=== PATIENT | male | born 1950 | race Hispanic/Latino ===

== ENCOUNTER 2018-01-15 10:12 | Inpatient (IN) | payer OTHER ==
[2018-01-15 11:43] LABS: Basophils # (Auto) 0.1 K/mm3 (0.0-0.1); Basophils % (Auto) 0.4 % (0.0-1.8); Eosinophils # (Auto) 0.1 K/mm3 (0.0-0.4); Eosinophils % (Auto) 0.8 % (0.0-4.3); Hematocrit 43.3 % (35.5-45.6); Lymphocytes # (Auto) 1.2 K/mm3 (1.2-5.4); Lymphocytes % (Auto) 7.2 % (13.4-35.0); Mean Corpuscular HGB Conc 35 % (32-34); Mean Corpuscular Hemoglobin 32 pg (28-32); Mean Corpuscular Volume 92 fl (84-94); Monocytes % (Auto) 11.8 % (0.0-7.3); Platelet Count 222 K/mm3 (140-440); Red Blood Count 4.72 M/mm3 (3.65-5.03)
[2018-01-15 11:58] LABS: BUN/Creatinine Ratio 17; Blood Urea Nitrogen 17 mg/dL (9-20); Calcium 9.3 mg/dL (8.4-10.2); Hemolysis Index 12
--- NOTE | 2018-01-15 14:28 | XRay Report ---
Chest 2 views: History: Possible pneumonia. Findings: Borderline cardiomegaly. Trachea is midline. Evidence of COPD. Infiltrates are noted in middle and lower lobe probably suggestive of pneumonitis. Impression: Pneumonia right middle and lower lobe.
--- NOTE | 2018-01-15 16:35 | Emergency Department Report ---
ED General Adult HPI - General Chief complaint: Recheck/Abnormal Lab/Rx Stated complaint: EVAL/REFERED BY /WBC HIGH Time Seen by Provider: 01/15/18 16:34 Source: patient, family, RN notes reviewed Mode of arrival: Ambulatory Limitations: No Limitations - History of Present Illness Initial comments: This is a 67-year-old male who is not known to this provider previously, endorses a past medical history of high cholesterol, A. fib, on Coumadin, hypertension. His primary care doctor is Dr. Romo. He was sent to the ER for evaluation of cough, elevated white blood cell count. Patient reports cough, mucus production and intermittent shortness of breath over the past few days. The symptoms are essentially painless, intermittent, do not radiate anywhere, and do not have exacerbating or relieving factors. He subjectively denies fever and denies lower abdominal pain, denies urinary symptoms. -: Gradual Severity scale (0 -10): 0 Consistency: intermittent Improves with: none Worsens with: none Associated Symptoms: cough, loss of appetite, malaise, shortness of breath. denies: confusion, chest pain, diaphoresis, fever/chills, headaches, nausea/ vomiting, rash, seizure, syncope, weakness - Related Data Allergies Allergy/AdvReac Type Severity Reaction Status Date / Time amoxicillin [From Augmentin] Allergy Diarrhea Verified 01/15/18 11:31 clavulanic acid Allergy Diarrhea Verified 01/15/18 11:31 [From Augmentin] ED Review of Systems ROS: Stated complaint: EVAL/REFERED BY /WBC HIGH Other details as noted in HPI Comment: All other systems reviewed and negative ED Past Medical Hx - Past Medical History Previous Medical History?: Yes Hx Hypertension: Yes Additional medical history: hyperlipidemia. a-fib - Surgical History Past Surgical History?: Yes Additional Surgical History: hernia sx 2016. finger sx while infant - Social History Smoking Status: Never Smoker Substance Use Type: None ED Physical Exam - General Limitations: No Limitations General appearance: alert, in no apparent distress - Head Head exam: Present: atraumatic, normocephalic - Eye Eye exam: Present: normal appearance, EOMI. Absent: nystagmus - ENT ENT exam: Present: normal exam, normal orophraynx, mucous membranes moist, normal external ear exam - Neck Neck exam: Present: normal inspection, full ROM. Absent: tenderness, meningismus - Respiratory Respiratory exam: Present: rhonchi. Absent: wheezes, chest wall tenderness - Cardiovascular Cardiovascular Exam: Present: tachycardia, irregular rhythm, normal heart sounds. Absent: systolic murmur, diastolic murmur, rubs, gallop - GI/Abdominal GI/Abdominal exam: Present: soft, normal bowel sounds. Absent: distended, tenderness, guarding, rebound, rigid, pulsatile mass - Rectal Rectal exam: Present: deferred - Extremities Exam Extremities exam: Present: normal inspection, full ROM, normal capillary refill , other (2+ pulses noted in the bilateral upper, lower extremities. Compartments soft. No long bony tenderness. The pelvis is stable.). Absent: tenderness, pedal edema, joint swelling, calf tenderness - Back Exam Back exam: Present: normal inspection, full ROM. Absent: tenderness, CVA tenderness (R), paraspinal tenderness, vertebral tenderness - Neurological Exam Neurological exam: Present: alert, oriented X3, CN II-XII intact, other ( Extraocular movements intact. Tongue midline. No facial droop. Facial sensation intact to light touch in the V1, V2, V3 distribution bilaterally. 5 and 5 strength in 4 extremities.. Sensation is intact to light touch in 4 extremities.). Absent: motor sensory deficit - Psychiatric Psychiatric exam: Present: normal affect, normal mood - Skin Skin exam: Present: warm, dry, intact, normal color. Absent: rash ED Course Vital Signs 01/15/18 01/15/18 11:22 16:19 Temperature 98.7 F 100.6 F H Pulse Rate 112 H 106 H Respiratory 18 15 Rate Blood Pressure 102/64 120/67 O2 Sat by Pulse 94 94 Oximetry ED Medical Decision Making - Lab Data Result diagrams: 01/15/18 16:40 01/15/18 16:34 Vital Signs 01/15/18 01/15/18 11:22 16:19 Temperature 98.7 F 100.6 F H Pulse Rate 112 H 106 H Respiratory 18 15 Rate Blood Pressure 102/64 120/67 O2 Sat by Pulse 94 94 Oximetry Lab Results 01/15/18 01/15/18 Range/Units 11:35 11:35 WBC 17.0 H (4.5-11.0) K/mm3 RBC 4.72 (3.65-5.03) M/mm3 Hgb 15.0 (11.8-15.2) gm/dl Hct 43.3 (35.5-45.6) % MCV 92 (84-94) fl MCH 32 (28-32) pg MCHC 35 H (32-34) % RDW 13.0 L (13.2-15.2) % Plt Count 222 (140-440) K/mm3 Lymph % (Auto) 7.2 L (13.4-35.0) % Isabella % (Auto) 11.8 H (0.0-7.3) % Eos % (Auto) 0.8 (0.0-4.3) % Baso % (Auto) 0.4 (0.0-1.8) % Lymph # 1.2 (1.2-5.4) K/mm3 Isabella # 2.0 H (0.0-0.8) K/mm3 Eos # 0.1 (0.0-0.4) K/mm3 Baso # 0.1 (0.0-0.1) K/mm3 Seg Neutrophils % 79.8 H (40.0-70.0) % Seg Neutrophils # 13.6 H (1.8-7.7) K/mm3 Sodium 132 L (137-145) mmol/L Potassium 3.7 (3.6-5.0) mmol/L Chloride 90.8 L (98-107) mmol/L Carbon Dioxide 26 (22-30) mmol/L Anion Gap 19 mmol/L BUN 17 (9-20) mg/dL Creatinine 1.0 (0.8-1.5) mg/dL Estimated GFR > 60 ml/min BUN/Creatinine Ratio 17 % Glucose 113 H (75-100) mg/dL Calcium 9.3 (8.4-10.2) mg/dL - EKG Data -: EKG Interpreted by Sc - EKG Data When compared to previous EKG there are: previous EKG unavailable 01/15/18 18:02 Atrial fibrillation, rapid ventricular response, 131 bpm, low voltage, normal axis, poor R-wave progression, not a STEMI - Radiology Data Radiology results: report reviewed, image reviewed X-ray of the chest suggest emphysematous changes, right lower lobe, right middle lobe pneumonia - Medical Decision Making Differential diagnosis, including but not limited to: Viral syndrome, pneumonia , bronchitis, A. fib with RVR Assessment and plan: 67-year-old gentleman with cough, mucus production, wheezing, x-ray of the chest that suggests right lower lobe and right middle lobe pneumonia, with tachycardia, leukocytosis, meeting sepsis criteria. He has a low-grade fever and is tachycardic, but is pleasant, calm and cooperative and looks very well. Please note that there is delay in administration of antibiotics secondary to prolonged wait time in this department in the waiting room. Furthermore, this provider began his shift well after the patient registered in the waiting room. Given the patient takes Coumadin therapy and has a therapeutic INR, he is not appropriate to receive azithromycin or Levaquin for his presumed community- acquired pneumonia. He endorses an intolerance to amoxicillin and then he gets diarrhea, but does not endorse any true anaphylactic or anaphylactoid responses. He will therefore be given IV fluids, albuterol, acetaminophen, ceftriaxone, and doxycycline. His A. fib with RVR is appreciated, but this is most likely secondary to his underlying sepsis, and it is my opinion that he would not benefit from a negative inotrope. The case is presented to the Hospital physician, Dr. Thao, who accepted the patient for the aforementioned. Critical care attestation.: If time is entered above; I have spent that time in minutes in the direct care of this critically ill patient, excluding procedure time. ED Disposition Clinical Impression: Atrial fibrillation with RVR Sepsis Qualifiers: Sepsis type: sepsis due to unspecified organism Qualified Code(s): A41.9 - Sepsis, unspecified organism Disposition: OP ADMIT IP TO THIS HOSP Is pt being admited?: Yes Condition: Good Referrals: GUERRERO BLACKBURN MD [Primary Care Provider] - 3-5 Days
[2018-01-15 16:50] LABS: Basophils # (Auto) 0.1 K/mm3 (0.0-0.1); Basophils % (Auto) 0.7 % (0.0-1.8); Eosinophils # (Auto) 0.1 K/mm3 (0.0-0.4); Eosinophils % (Auto) 0.8 % (0.0-4.3); Hematocrit 45.2 % (35.5-45.6); Hemoglobin 15.6 gm/dl (11.8-15.2); Lymphocytes # (Auto) 1.4 K/mm3 (1.2-5.4); Lymphocytes % (Auto) 8.2 % (13.4-35.0); Mean Corpuscular HGB Conc 34 % (32-34); Mean Corpuscular Hemoglobin 32 pg (28-32); Mean Corpuscular Volume 92 fl (84-94); Monocytes # (Auto) 1.9 K/mm3 (0.0-0.8); Monocytes % (Auto) 11.1 % (0.0-7.3); Platelet Count 241 K/mm3 (140-440); Red Cell Distribution Width 13.3 % (13.2-15.2)
[2018-01-15] MEDS ORDERED: NACL 0.9% 1000 ML IV ONE (16:57)
[2018-01-15] MEDS ORDERED: VIBRAMYCIN PO ONE (16:58)
[2018-01-15] MEDS ORDERED: TYLENOL PO ONE (16:58)
[2018-01-15] MEDS ORDERED: ATROVENT IH ONE (16:59)
[2018-01-15] MEDS ORDERED: PROVENTIL IH ONE (16:59)
[2018-01-15] MEDS ORDERED: SOLU-Medrol IV ONE (16:59)
[2018-01-15 17:00] LABS: INR 2.26 (0.87-1.13)
[2018-01-15 17:19] LABS: Alanine Aminotransferase 26 units/L (7-56); Albumin 4.4 g/dL (3.9-5); BUN/Creatinine Ratio 18; Blood Urea Nitrogen 18 mg/dL (9-20); Calcium 9.3 mg/dL (8.4-10.2); Hemolysis Index 6
--- NOTE | 2018-01-15 17:26 | History and Physical Report ---
History of Present Illness Chief complaint: I feel sick, I been coughing History of present illness: 67 YO Male with Atrial Fib on therapeutic anticoagulation, HTN, HLD presents to ED for evaluation. Pt states that he has been feeling sick for the past 4-5 days. Pt states that he has experienced productive cough with yellow sputum, shortness of breath, subjective fever with worsening symptoms over the past 1 day. Pt was seen by his PCP and found to have elevated WBC count and was instructed to seek further care at [facility]. Pt transported to ED. Pt seen and evaluated in ED and found to have Sepsis, Pneumonia. Pt initiated on sepsis protocol, and admitted to [facility] unit. No reports of CP, Palpitations, NVD, Trauma , BRBPR, Skin rash, or recent ill contacts. Past History Past Medical History: atrial fib, hypertension, hyperlipidemia Past Surgical History: hernia repair, Other (finger surgery) Social history: , lives with family. denies: smoking, alcohol abuse, prescription drug abuse Family history: hypertension Medications and Allergies Allergies Allergy/AdvReac Type Severity Reaction Status Date / Time amoxicillin [From Augmentin] Allergy Diarrhea Verified 01/15/18 11:31 clavulanic acid Allergy Diarrhea Verified 01/15/18 11:31 [From Augmentin] Home Medications Medication Instructions Recorded Confirmed Last Taken Type Amlodipine Besylate [Norvasc] 5 mg PO DAILY 01/15/18 01/15/18 01/15/18 History AtorvaSTATin [Lipitor] 10 mg PO DAILY 01/15/18 01/15/18 01/15/18 History Brinzolamide [Azopt 1%] 1 drop OU BID 01/15/18 01/15/18 01/15/18 History Latanoprost/Pf [Latanoprost 0.005% 7.5 ml OU BID 01/15/18 01/15/18 01/15/18 History Eye Drop] Lisinopril/Hydrochlorothiazide 1 tab PO QDAY 01/15/18 01/15/18 01/15/18 History [Zestoretic 20-25 mg] Metoprolol Succinate 25 mg PO QHS 01/15/18 01/15/18 01/14/18 History Prednisolone Acetate/Pf 5 ml OU BID 01/15/18 01/15/18 01/15/18 History [Prednisolone Acet 1% Eye Drop] Timolol [Betimol] 5 ml OU BID 01/15/18 01/15/18 01/15/18 History Warfarin Sodium 5 mg PO DAILY 01/15/18 01/15/18 01/15/18 History cycloSPORINE [Restasis] 1 each OU BID 01/15/18 01/15/18 01/15/18 History Active Meds: Active Medications Ceftriaxone Sodium (Rocephin/Ns 2 Gm/100 Ml) 2 gm in 100 mls @ 200 mls/hr IV NOW BOY; Protocol Review of Systems Constitutional: fever, fatigue, weakness, no weight loss, no weight gain, no chills, no sweats Ears, nose, mouth and throat: no ear pain, no ear discharge, no tinnitis, no decreased hearing, no nose pain, no nasal congestion Cardiovascular: no chest pain, no palpitations, no edema, no syncope, no lightheadedness Respiratory: cough with sputum, shortness of breath Gastrointestinal: no abdominal pain, no nausea, no vomiting, no diarrhea, no constipation Genitourinary Male: no hematuria, no flank pain, no urinary frequency, no urinary hesitancy Rectal: no pain, no incontinence, no bleeding Musculoskeletal: no neck pain, no shooting arm pain, no arm numbness/tingling, no low back pain, no shooting leg pain Integumentary: no rash, no pruritis, no redness, no sores, no wounds Neurological: no paralysis, no weakness, no parathesias, no numbness, no tingling, no seizures Psychiatric: no anxiety, no memory loss, no change in sleep habits, no sleep disturbances, no insomnia, no hypersomnia Endocrine: no cold intolerance, no heat intolerance, no polyphagia, no excessive thirst, no polydipsia, no polyuria, no nocturia Hematologic/Lymphatic: no easy bruising, no easy bleeding, no lymphadenopathy, no lymphedema Allergic/Immunologic: no urticaria, no allergic rhinitis, no wheezing Exam - Constitutional Vitals: Temp Pulse Resp BP Pulse Ox 100.6 F H 106 H 15 120/67 94 01/15/18 16:19 01/15/18 16:19 01/15/18 16:19 01/15/18 16:19 01/15/18 16:19 General appearance: Present: mild distress - EENT Eyes: Present: PERRL ENT: hearing intact, clear oral mucosa - Neck Neck: Present: supple, normal ROM - Respiratory Respiratory effort: normal Respiratory: bilateral: diminished, rhonchi - Cardiovascular Rhythm: irregularly irregular Heart Sounds: Present: S1 & S2. Absent: rub, click - Extremities Extremities: pulses symmetrical, No edema Peripheral Pulses: abnormal (capillary refill greater than 3.5 seconds) - Abdominal General gastrointestinal: Present: soft, non-tender, non-distended, normal bowel sounds Male genitourinary: Present: normal - Integumentary Integumentary: Present: warm, dry, clammy, decreased turgor - Musculoskeletal Musculoskeletal: generalized weakness - Psychiatric Psychiatric: appropriate mood/affect, intact judgment & insight - Neurologic Neurologic: CNII-XII intact, moves all extremities Results - Labs CBC & Chem 7: 01/15/18 16:40 01/15/18 16:34 Labs: Abnormal lab results 01/15/18 01/15/18 01/15/18 Range/Units 11:35 11:35 16:34 WBC 17.0 H (4.5-11.0) K/mm3 Hgb (11.8-15.2) gm/dl MCHC 35 H (32-34) % RDW 13.0 L (13.2-15.2) % Lymph % (Auto) 7.2 L (13.4-35.0) % Morgan % (Auto) 11.8 H (0.0-7.3) % Morgan # 2.0 H (0.0-0.8) K/mm3 Seg Neutrophils % 79.8 H (40.0-70.0) % Seg Neutrophils # 13.6 H (1.8-7.7) K/mm3 PT 26.4 H (12.2-14.9) Sec. INR 2.26 H (0.87-1.13) Sodium 132 L (137-145) mmol/L Chloride 90.8 L (98-107) mmol/L Glucose 113 H (75-100) mg/dL Total Bilirubin (0.1-1.2) mg/dL 01/15/18 01/15/18 Range/Units 16:34 16:40 WBC 17.0 H (4.5-11.0) K/mm3 Hgb 15.6 H (11.8-15.2) gm/dl MCHC (32-34) % RDW (13.2-15.2) % Lymph % (Auto) 8.2 L (13.4-35.0) % Morgan % (Auto) 11.1 H (0.0-7.3) % Morgan # 1.9 H (0.0-0.8) K/mm3 Seg Neutrophils % 79.2 H (40.0-70.0) % Seg Neutrophils # 13.5 H (1.8-7.7) K/mm3 PT (12.2-14.9) Sec. INR (0.87-1.13) Sodium 133 L (137-145) mmol/L Chloride 89.8 L (98-107) mmol/L Glucose 115 H (75-100) mg/dL Total Bilirubin 2.50 H (0.1-1.2) mg/dL Assessment and Plan - Patient Problems (1) Sepsis Current Visit: Yes Status: Acute Qualifiers: Sepsis type: sepsis due to unspecified organism Qualified Code(s): A41.9 - Sepsis, unspecified organism Plan to address problem: IV antibiotic therapy, IVF resuscitation therapy, serial lactic acid, chest xray , urinalysis, blood cultures, monitor uop q shift, (2) Atrial fibrillation Current Visit: Yes Status: Acute Qualifiers: Atrial fibrillation type: persistent Qualified Code(s): I48.1 - Persistent atrial fibrillation Plan to address problem: resume therapeutic anticoagulation, supportive care. (3) Pneumonia Current Visit: Yes Status: Acute Qualifiers: Laterality: bilateral Lung location: lower lobe of lung Plan to address problem: Pneumonia protocol, IV antibiotics, blood culture, chest x ray, nebulizer therapy, supplemental oxygen, (4) HTN (hypertension) Current Visit: Yes Status: Acute Qualifiers: Hypertension type: essential hypertension Qualified Code(s): I10 - Essential (primary) hypertension Plan to address problem: monitor BP q shift, (5) HLD (hyperlipidemia) Current Visit: Yes Status: Acute Qualifiers: Hyperlipidemia type: mixed hyperlipidemia Qualified Code(s): E78.2 - Mixed hyperlipidemia Plan to address problem: Statin therapy, low cholesterol diet (6) DVT prophylaxis Current Visit: Yes Status: Acute Plan to address problem: SCD to BLE while in bed.
[2018-01-15 17:56] LABS: Albumin 4.4 g/dL (3.9-5); Bilirubin,Direct 0.7 mg/dL (0-0.2)
[2018-01-15] MEDS: ROCEPHIN/NS 2 GM/100 ML 2 GM/100 ML BAG IV SCH (19:42)
[2018-01-15] MEDS ORDERED: TYLENOL PO PRN (20:57)
[2018-01-15] MEDS ORDERED: ZOFRAN IV PRN (20:57)
[2018-01-15] MEDS ORDERED: NACL 0.9% 1000 ML 1,000 ML IV ONE (21:15)
[2018-01-15] MEDS ORDERED: NACL 0.9% 1000 ML 1,000 ML ONE (21:17)
[2018-01-15 22:43] LABS: Bilirubin,Urine NEG (Negative); Blood,Urine NEG (Negative); Color,Urine Dark Yellow (Yellow); Mucus,Urine FEW /HPF; Protein,Urine <15 mg/dL mg/dL (Negative); Urobilinogen,Urine < 2.0 mg/dL (<2.0)
[2018-01-15] MEDS: SODIUM CHLORIDE FLUSH SYRINGE 10 ML IV SCH (23:05)
[2018-01-16] MEDS: SODIUM CHLORIDE FLUSH SYRINGE 10 ML IV SCH ×2 (09:22→21:14)
--- NOTE | 2018-01-16 16:07 | Progress Note ---
Assessment and Plan Assessment and plan: I feel sick, I been coughing History of present illness: 67 YO Male with Atrial Fib on therapeutic anticoagulation, HTN, HLD presents to ED for evaluation. Pt states that he has been feeling sick for the past 4-5 days. Pt states that he has experienced productive cough with yellow sputum, shortness of breath, subjective fever with worsening symptoms over the past 1 day. Pt was seen by his PCP and found to have elevated WBC count and was instructed to seek further care at [facility]. Pt transported to ED. Pt seen and evaluated in ED and found to have Sepsis, Pneumonia. Pt initiated on sepsis protocol, and admitted to [facility] unit. No reports of CP, Palpitations, NVD, Trauma , BRBPR, Skin rash, or recent ill contacts. Past Medical History: atrial fib, hypertension, hyperlipidemia Sepsis IV antibiotic therapy, IVF resuscitation therapy, serial lactic acid, chest xray , urinalysis, blood cultures, monitor uop q shift, Atrial fibrillation with hypercoaguable state resume therapeutic anticoagulation, supportive care. Pneumonia Pneumonia protocol, IV antibiotics, blood culture, chest x ray, nebulizer therapy, supplemental oxygen, HTN (hypertension) monitor BP q shift, HLD (hyperlipidemia) Statin therapy, low cholesterol diet History Interval history: Reports fever and productive cough Review of systems Constitutional: , no malaise, no joint pains CVS: No chest pain, no orthopnea, no dyspnea on exertion, no pedal edema GI: No abdominal pain, no diarrhea, no vomiting, no constipation Respiratory:, no wheezing, Hospitalist Physical - Physical exam Narrative exam: General.: Appears well, no distress, nontoxic HEENT: Moist mucous membranes, extraocular muscles intact, no lymphadenopathy Neck: supple Cardiac: S1-S2 heard Lungs: Crackles Abdomen: soft , nontender, nondistended, bowel sounds positive Extremities: no edema clubbing or cyanosis Skin: no rash or lesions Neurologic: no gross focal deficits Psych: appropriate behavior, appropriate mood, corporative, judgment intact - Constitutional Vitals: Temp Pulse Resp BP Pulse Ox 97.6 F 128 H 16 109/62 92 01/16/18 14:18 01/16/18 14:18 01/16/18 14:18 01/16/18 14:18 01/16/18 14:18 General appearance: Present: mild distress Results - Labs CBC & Chem 7: 01/15/18 16:40 01/15/18 16:34 Labs: Laboratory Last Values WBC 17.0 K/mm3 (4.5-11.0) H 01/15/18 16:40 RBC 4.90 M/mm3 (3.65-5.03) 01/15/18 16:40 Hgb 15.6 gm/dl (11.8-15.2) H 01/15/18 16:40 Hct 45.2 % (35.5-45.6) 01/15/18 16:40 MCV 92 fl (84-94) 01/15/18 16:40 MCH 32 pg (28-32) 01/15/18 16:40 MCHC 34 % (32-34) 01/15/18 16:40 RDW 13.3 % (13.2-15.2) 01/15/18 16:40 Plt Count 241 K/mm3 (140-440) 01/15/18 16:40 Lymph % (Auto) 8.2 % (13.4-35.0) L 01/15/18 16:40 Tyler % (Auto) 11.1 % (0.0-7.3) H 01/15/18 16:40 Eos % (Auto) 0.8 % (0.0-4.3) 01/15/18 16:40 Baso % (Auto) 0.7 % (0.0-1.8) 01/15/18 16:40 Lymph # 1.4 K/mm3 (1.2-5.4) 01/15/18 16:40 Tyler # 1.9 K/mm3 (0.0-0.8) H 01/15/18 16:40 Eos # 0.1 K/mm3 (0.0-0.4) 01/15/18 16:40 Baso # 0.1 K/mm3 (0.0-0.1) 01/15/18 16:40 Seg Neutrophils % 79.2 % (40.0-70.0) H 01/15/18 16:40 Seg Neutrophils # 13.5 K/mm3 (1.8-7.7) H 01/15/18 16:40 PT 26.4 Sec. (12.2-14.9) H 01/15/18 16:34 INR 2.26 (0.87-1.13) H 01/15/18 16:34 VBG pH 7.412 (7.320-7.420) 01/15/18 16:34 Sodium 133 mmol/L (137-145) L 01/15/18 16:34 Potassium 3.6 mmol/L (3.6-5.0) 01/15/18 16:34 Chloride 89.8 mmol/L (98-107) L 01/15/18 16:34 Carbon Dioxide 27 mmol/L (22-30) 01/15/18 16:34 Anion Gap 20 mmol/L 01/15/18 16:34 BUN 18 mg/dL (9-20) 01/15/18 16:34 Creatinine 1.0 mg/dL (0.8-1.5) 01/15/18 16:34 Estimated GFR > 60 ml/min 01/15/18 16:34 BUN/Creatinine Ratio 18 % 01/15/18 16:34 Glucose 115 mg/dL (75-100) H 01/15/18 16:34 Lactic Acid 1.60 mmol/L (0.7-2.0) 01/16/18 05:42 Calcium 9.3 mg/dL (8.4-10.2) 01/15/18 16:34 Total Bilirubin 2.50 mg/dL (0.1-1.2) H 01/15/18 17:08 Direct Bilirubin 0.7 mg/dL (0-0.2) H 01/15/18 17:08 Indirect Bilirubin 1.8 mg/dL 01/15/18 17:08 AST 35 units/L (5-40) 01/15/18 17:08 ALT 27 units/L (7-56) 01/15/18 17:08 Alkaline Phosphatase 67 units/L (35-129) 01/15/18 17:08 Total Protein 7.1 g/dL (6.3-8.2) 01/15/18 17:08 Albumin 4.4 g/dL (3.9-5) 01/15/18 17:08 Albumin/Globulin Ratio 1.6 % 01/15/18 17:08 Urine Color Dark yellow (Yellow) 01/15/18 21:37 Urine Turbidity Slightly-cloudy (Clear) 01/15/18 21:37 Urine pH 5.0 (5.0-7.0) 01/15/18 21:37 Ur Specific Colora 1.016 (1.003-1.030) 01/15/18 21:37 Urine Protein <15 mg/dl mg/dL (Negative) 01/15/18 21:37 Urine Glucose (UA) Neg mg/dL (Negative) 01/15/18 21:37 Urine Ketones 20 mg/dL (Negative) 01/15/18 21:37 Urine Blood Neg (Negative) 01/15/18 21:37 Urine Nitrite Neg (Negative) 01/15/18 21:37 Urine Bilirubin Neg (Negative) 01/15/18 21:37 Urine Urobilinogen < 2.0 mg/dL (<2.0) 01/15/18 21:37 Ur Leukocyte Esterase Neg (Negative) 01/15/18 21:37 Urine WBC (Auto) 7.0 /HPF (0.0-6.0) H 01/15/18 21:37 Urine RBC (Auto) 3.0 /HPF (0.0-6.0) 01/15/18 21:37 Urine Mucus Few /HPF 01/15/18 21:37
[2018-01-16] MEDS: NACL 0.9% 1000 ML 1,000 ML IV SCH (17:24)
[2018-01-16] MEDS: SODIUM CHLORIDE FLUSH SYRINGE 10 ML IV PRN (17:25)
[2018-01-16] MEDS: ROCEPHIN/NS 2 GM/100 ML 2 GM/100 ML BAG IV SCH (17:25)
[2018-01-16] MEDS: TESSALON PERLES PO SCH (21:08)
[2018-01-16] MEDS: ROBITUSSIN AC PO PRN (21:09)
[2018-01-17] MEDS: ROBITUSSIN AC PO PRN ×4 (01:26→23:15)
[2018-01-17] MEDS: NACL 0.9% 1000 ML 1,000 ML IV SCH ×3 (01:27→17:16)
[2018-01-17] MEDS: TESSALON PERLES PO SCH ×3 (05:35→21:26)
--- NOTE | 2018-01-17 08:15 | Progress Note ---
Assessment and Plan Assessment and plan: I feel sick, I been coughing History of present illness: 67 YO Male with Atrial Fib on therapeutic anticoagulation, HTN, HLD presents to ED for evaluation. Pt states that he has been feeling sick for the past 4-5 days. Pt states that he has experienced productive cough with yellow sputum, shortness of breath, subjective fever with worsening symptoms over the past 1 day. Pt was seen by his PCP and found to have elevated WBC count and was instructed to seek further care at [facility]. Pt transported to ED. Pt seen and evaluated in ED and found to have Sepsis, Pneumonia. Pt initiated on sepsis protocol, and admitted to [facility] unit. No reports of CP, Palpitations, NVD, Trauma , BRBPR, Skin rash, or recent ill contacts. Past Medical History: atrial fib, hypertension, hyperlipidemia Sepsis IV antibiotic therapy, IVF resuscitation therapy, serial lactic acid, chest xray , urinalysis, blood cultures, monitor uop q shift, Atrial fibrillation with hypercoaguable state resume therapeutic anticoagulation, supportive care. tachycardic, resume metoprolol, 12 lead ekg, and on warfarin Pneumonia Pneumonia protocol, IV antibiotics, blood culture, chest x ray, nebulizer therapy, supplemental oxygen, HTN (hypertension) monitor BP q shift, HLD (hyperlipidemia) Statin therapy, low cholesterol diet History Interval history: Fever has resolved, he reports productive cough Nurses report he was tachycardic overnight Review of systems Constitutional: , no malaise, no joint pains CVS: No chest pain, no orthopnea, no dyspnea on exertion, no pedal edema GI: No abdominal pain, no diarrhea, no vomiting, no constipation Respiratory:, no wheezing, Hospitalist Physical - Physical exam Narrative exam: General.: Appears well, no distress, nontoxic HEENT: Moist mucous membranes, extraocular muscles intact, no lymphadenopathy Neck: supple Cardiac: S1-S2 heard Lungs: Crackles Abdomen: soft , nontender, nondistended, bowel sounds positive Extremities: no edema clubbing or cyanosis Skin: no rash or lesions Neurologic: no gross focal deficits Psych: appropriate behavior, appropriate mood, corporative, judgment intact - Constitutional Vitals: Temp Pulse Resp BP Pulse Ox 98.2 F 100 H 20 116/72 93 01/17/18 02:27 01/16/18 20:30 01/17/18 02:27 01/17/18 02:27 01/16/18 21:00 General appearance: Present: mild distress Results - Labs CBC & Chem 7: 01/15/18 16:40 01/15/18 16:34 Labs: Laboratory Last Values WBC 17.0 K/mm3 (4.5-11.0) H 01/15/18 16:40 RBC 4.90 M/mm3 (3.65-5.03) 01/15/18 16:40 Hgb 15.6 gm/dl (11.8-15.2) H 01/15/18 16:40 Hct 45.2 % (35.5-45.6) 01/15/18 16:40 MCV 92 fl (84-94) 01/15/18 16:40 MCH 32 pg (28-32) 01/15/18 16:40 MCHC 34 % (32-34) 01/15/18 16:40 RDW 13.3 % (13.2-15.2) 01/15/18 16:40 Plt Count 241 K/mm3 (140-440) 01/15/18 16:40 Lymph % (Auto) 8.2 % (13.4-35.0) L 01/15/18 16:40 [place] % (Auto) 11.1 % (0.0-7.3) H 01/15/18 16:40 Eos % (Auto) 0.8 % (0.0-4.3) 01/15/18 16:40 Baso % (Auto) 0.7 % (0.0-1.8) 01/15/18 16:40 Lymph # 1.4 K/mm3 (1.2-5.4) 01/15/18 16:40 [place] # 1.9 K/mm3 (0.0-0.8) H 01/15/18 16:40 Eos # 0.1 K/mm3 (0.0-0.4) 01/15/18 16:40 Baso # 0.1 K/mm3 (0.0-0.1) 01/15/18 16:40 Seg Neutrophils % 79.2 % (40.0-70.0) H 01/15/18 16:40 Seg Neutrophils # 13.5 K/mm3 (1.8-7.7) H 01/15/18 16:40 PT 26.4 Sec. (12.2-14.9) H 01/15/18 16:34 INR 2.26 (0.87-1.13) H 01/15/18 16:34 VBG pH 7.412 (7.320-7.420) 01/15/18 16:34 Sodium 133 mmol/L (137-145) L 01/15/18 16:34 Potassium 3.6 mmol/L (3.6-5.0) 01/15/18 16:34 Chloride 89.8 mmol/L (98-107) L 01/15/18 16:34 Carbon Dioxide 27 mmol/L (22-30) 01/15/18 16:34 Anion Gap 20 mmol/L 01/15/18 16:34 BUN 18 mg/dL (9-20) 01/15/18 16:34 Creatinine 1.0 mg/dL (0.8-1.5) 01/15/18 16:34 Estimated GFR > 60 ml/min 01/15/18 16:34 BUN/Creatinine Ratio 18 % 01/15/18 16:34 Glucose 115 mg/dL (75-100) H 01/15/18 16:34 Lactic Acid 1.60 mmol/L (0.7-2.0) 01/16/18 05:42 Calcium 9.3 mg/dL (8.4-10.2) 01/15/18 16:34 Total Bilirubin 2.50 mg/dL (0.1-1.2) H 01/15/18 17:08 Direct Bilirubin 0.7 mg/dL (0-0.2) H 01/15/18 17:08 Indirect Bilirubin 1.8 mg/dL 01/15/18 17:08 AST 35 units/L (5-40) 01/15/18 17:08 ALT 27 units/L (7-56) 01/15/18 17:08 Alkaline Phosphatase 67 units/L (35-129) 01/15/18 17:08 Total Protein 7.1 g/dL (6.3-8.2) 01/15/18 17:08 Albumin 4.4 g/dL (3.9-5) 01/15/18 17:08 Albumin/Globulin Ratio 1.6 % 01/15/18 17:08 Urine Color Dark yellow (Yellow) 01/15/18 21:37 Urine Turbidity Slightly-cloudy (Clear) 01/15/18 21:37 Urine pH 5.0 (5.0-7.0) 01/15/18 21:37 Ur Specific [place] 1.016 (1.003-1.030) 01/15/18 21:37 Urine Protein <15 mg/dl mg/dL (Negative) 01/15/18 21:37 Urine Glucose (UA) Neg mg/dL (Negative) 01/15/18 21:37 Urine Ketones 20 mg/dL (Negative) 01/15/18 21:37 Urine Blood Neg (Negative) 01/15/18 21:37 Urine Nitrite Neg (Negative) 01/15/18 21:37 Urine Bilirubin Neg (Negative) 01/15/18 21:37 Urine Urobilinogen < 2.0 mg/dL (<2.0) 01/15/18 21:37 Ur Leukocyte Esterase Neg (Negative) 01/15/18 21:37 Urine WBC (Auto) 7.0 /HPF (0.0-6.0) H 01/15/18 21:37 Urine RBC (Auto) 3.0 /HPF (0.0-6.0) 01/15/18 21:37 Urine Mucus Few /HPF 01/15/18 21:37
[2018-01-17] MEDS ORDERED: LOPRESSOR PO ONE ×2 (08:18→12:00)
[2018-01-17] MEDS: SODIUM CHLORIDE FLUSH SYRINGE 10 ML IV SCH ×2 (09:20→21:26)
[2018-01-17] MEDS ORDERED: NON-FORMULARY (Lisinopril/Hydrochlorothiazide [Zestoretic 20-25 Mg] 1 TAB) PO SCH (10:00)
[2018-01-17] MEDS ORDERED: NON-FORMULARY (Brinzolamide [Azopt 1%] 1 DROP) OU SCH (10:00)
[2018-01-17] MEDS ORDERED: COUMADIN PO SCH ×3 (10:00→17:00)
[2018-01-17] MEDS ORDERED: CYCLOSPORINE OU SCH (10:00)
[2018-01-17] MEDS ORDERED: TIMOLOL OU SCH (10:00)
[2018-01-17] MEDS: NORVASC PO SCH (11:51)
[2018-01-17] MEDS: ZESTRIL PO SCH (15:35)
[2018-01-17] MEDS: HCTZ PO SCH (15:35)
[2018-01-17] MEDS: ROCEPHIN/NS 2 GM/100 ML 2 GM/100 ML BAG IV SCH (17:12)
[2018-01-17] MEDS: SODIUM CHLORIDE FLUSH SYRINGE 10 ML IV PRN (17:16)
[2018-01-17] MEDS: TOPROL XL PO SCH (21:26)
[2018-01-18] MEDS: NACL 0.9% 1000 ML 1,000 ML IV SCH ×3 (01:20→17:09)
[2018-01-18] MEDS: LATANOPROST 0.005% OU SCH ×4 (01:22→21:49)
[2018-01-18] MEDS: PRED FORTE 1% OU SCH ×4 (01:22→21:48)
[2018-01-18 05:28] LABS: INR 5.12 (0.87-1.13)
[2018-01-18] MEDS: TESSALON PERLES PO SCH ×4 (06:53→22:45)
[2018-01-18] MEDS: ROBITUSSIN AC PO PRN ×4 (06:57→21:39)
[2018-01-18 06:59] LABS: INR 5.14 (0.87-1.13)
[2018-01-18] MEDS: HCTZ PO SCH (09:20)
[2018-01-18] MEDS: ZESTRIL PO SCH (09:20)
[2018-01-18] MEDS: SODIUM CHLORIDE FLUSH SYRINGE 10 ML IV SCH ×2 (09:20→22:45)
[2018-01-18] MEDS: NORVASC PO SCH (09:20)
[2018-01-18] MEDS: ROCEPHIN/NS 2 GM/100 ML 2 GM/100 ML BAG IV SCH (17:09)
--- NOTE | 2018-01-18 17:50 | Discharge Summary ---
Providers - Providers Date of Admission: 01/15/18 20:57 Attending physician: PORSHA RUSSELL MD Primary care physician: GUERRERO BLACKBURN Hospitalization Condition: Good Hospital course: I feel sick, I been coughing History of present illness: 67 YO Male with Atrial Fib on therapeutic anticoagulation, HTN, HLD presents to ED for evaluation. Pt states that he has been feeling sick for the past 4-5 days. Pt states that he has experienced productive cough with yellow sputum, shortness of breath, subjective fever with worsening symptoms over the past 1 day. Pt was seen by his PCP and found to have elevated WBC count and was instructed to seek further care at [facility]. Pt transported to ED. Pt seen and evaluated in ED and found to have Sepsis, Pneumonia. Pt initiated on sepsis protocol, and admitted to [facility] unit. No reports of CP, Palpitations, NVD, Trauma , BRBPR, Skin rash, or recent ill contacts. Past Medical History: atrial fib, hypertension, hyperlipidemia Sepsis IV antibiotic therapy, IVF resuscitation therapy, serial lactic acid, chest xray , urinalysis, blood cultures, monitor uop q shift, Atrial fibrillation with hypercoaguable state resume therapeutic anticoagulation, supportive care. tachycardic, resume metoprolol, 12 lead ekg, and on warfarin Pneumonia Pneumonia protocol, IV antibiotics, blood culture, chest x ray, nebulizer therapy, supplemental oxygen, HTN (hypertension) monitor BP q shift, HLD (hyperlipidemia) Statin therapy, low cholesterol diet Disposition: DC-01 TO HOME OR SELFCARE Exam - Constitutional Vitals: Temp Pulse Resp BP Pulse Ox 98.4 F 111 H 20 109/68 90 01/18/18 13:28 01/18/18 13:31 01/18/18 13:28 01/18/18 13:28 01/18/18 13:31 Plan Additional Instructions: Do not take warfarin for next two days, please get INR (blood test) done this week Follow up with: GUERRERO BLACKBURN MD [Primary Care Provider] - 3-5 Days Forms: Warfarin Discharge Instruction Prescriptions: Benzonatate [Tessalon Perles] 100 mg PO Q8HR #60 capsule guaiFENesin/CODEINE [Robitussin AC] 10 ml PO Q4H PRN #60 ml PRN Reason: Cough
[2018-01-18] MEDS: PROVENTIL IH PRN (21:09)
[2018-01-18] MEDS: TOPROL XL PO SCH (21:40)
[2018-01-19] MEDS: NACL 0.9% 1000 ML 1,000 ML IV SCH (01:26)
[2018-01-19] MEDS: ROBITUSSIN AC PO PRN ×2 (01:26→06:54)
[2018-01-19] MEDS: TESSALON PERLES PO SCH ×3 (06:54→23:29)
--- NOTE | 2018-01-19 07:01 | Progress Note ---
Assessment and Plan Assessment and plan: I feel sick, I been coughing History of present illness: 67 YO Male with Atrial Fib on therapeutic anticoagulation, HTN, HLD presents to ED for evaluation. Pt states that he has been feeling sick for the past 4-5 days. Pt states that he has experienced productive cough with yellow sputum, shortness of breath, subjective fever with worsening symptoms over the past 1 day. Pt was seen by his PCP and found to have elevated WBC count and was instructed to seek further care at [facility]. Pt transported to ED. Pt seen and evaluated in ED and found to have Sepsis, Pneumonia. Pt initiated on sepsis protocol, and admitted to [facility] unit. No reports of CP, Palpitations, NVD, Trauma , BRBPR, Skin rash, or recent ill contacts. Past Medical History: atrial fib, hypertension, hyperlipidemia Sepsis IV antibiotic therapy, IVF resuscitation therapy, serial lactic acid, chest xray , urinalysis, blood cultures, monitor uop q shift, Atrial fibrillation with hypercoaguable state and RVR supratherapeutic INR, warfarin on hold cardiology consult, echo ordered Pneumonia cont abx, will repeat CXR since he seems to not be improved (has he developed pulm edema also?) Acute hypoxic respiratory failure continue oxygen, may need oxygen on dc HTN (hypertension) monitor BP q shift, HLD (hyperlipidemia) Statin therapy, low cholesterol diet History Interval history: Fever has resolved, he reports productive cough Nurses report he was tachycardic overnight he is co MCNEIL and weakness Review of systems Constitutional: ,, no joint pains CVS: No chest pain, no orthopnea, no dyspnea on exertion, no pedal edema GI: No abdominal pain, no diarrhea, no vomiting, no constipation Respiratory:, no wheezing, Hospitalist Physical - Physical exam Narrative exam: General.: Appears well, no distress, nontoxic HEENT: Moist mucous membranes, extraocular muscles intact, no lymphadenopathy Neck: supple Cardiac: S1-S2 heard Lungs: Crackles Abdomen: soft , nontender, nondistended, bowel sounds positive Extremities: no edema clubbing or cyanosis Skin: no rash or lesions Neurologic: no gross focal deficits Psych: appropriate behavior, appropriate mood, corporative, judgment intact - Constitutional Vitals: Temp Pulse Resp BP Pulse Ox 98.8 F 133 H 22 119/70 90 01/19/18 02:41 01/19/18 03:45 01/19/18 02:41 01/19/18 02:41 01/19/18 02:41 General appearance: Present: mild distress Results - Labs CBC & Chem 7: 01/15/18 16:40 01/15/18 16:34 Labs: Laboratory Last Values WBC 17.0 K/mm3 (4.5-11.0) H 01/15/18 16:40 RBC 4.90 M/mm3 (3.65-5.03) 01/15/18 16:40 Hgb 15.6 gm/dl (11.8-15.2) H 01/15/18 16:40 Hct 45.2 % (35.5-45.6) 01/15/18 16:40 MCV 92 fl (84-94) 01/15/18 16:40 MCH 32 pg (28-32) 01/15/18 16:40 MCHC 34 % (32-34) 01/15/18 16:40 RDW 13.3 % (13.2-15.2) 01/15/18 16:40 Plt Count 241 K/mm3 (140-440) 01/15/18 16:40 Lymph % (Auto) 8.2 % (13.4-35.0) L 01/15/18 16:40 [place] % (Auto) 11.1 % (0.0-7.3) H 01/15/18 16:40 Eos % (Auto) 0.8 % (0.0-4.3) 01/15/18 16:40 Baso % (Auto) 0.7 % (0.0-1.8) 01/15/18 16:40 Lymph # 1.4 K/mm3 (1.2-5.4) 01/15/18 16:40 [place] # 1.9 K/mm3 (0.0-0.8) H 01/15/18 16:40 Eos # 0.1 K/mm3 (0.0-0.4) 01/15/18 16:40 Baso # 0.1 K/mm3 (0.0-0.1) 01/15/18 16:40 Seg Neutrophils % 79.2 % (40.0-70.0) H 01/15/18 16:40 Seg Neutrophils # 13.5 K/mm3 (1.8-7.7) H 01/15/18 16:40 PT 51.3 Sec. (12.2-14.9) H 01/18/18 06:03 INR 5.14 (0.87-1.13) H* 01/18/18 06:03 VBG pH 7.412 (7.320-7.420) 01/15/18 16:34 Sodium 133 mmol/L (137-145) L 01/15/18 16:34 Potassium 3.6 mmol/L (3.6-5.0) 01/15/18 16:34 Chloride 89.8 mmol/L (98-107) L 01/15/18 16:34 Carbon Dioxide 27 mmol/L (22-30) 01/15/18 16:34 Anion Gap 20 mmol/L 01/15/18 16:34 BUN 18 mg/dL (9-20) 01/15/18 16:34 Creatinine 1.0 mg/dL (0.8-1.5) 01/15/18 16:34 Estimated GFR > 60 ml/min 01/15/18 16:34 BUN/Creatinine Ratio 18 % 01/15/18 16:34 Glucose 115 mg/dL (75-100) H 01/15/18 16:34 Lactic Acid 1.60 mmol/L (0.7-2.0) 01/16/18 05:42 Calcium 9.3 mg/dL (8.4-10.2) 01/15/18 16:34 Total Bilirubin 2.50 mg/dL (0.1-1.2) H 01/15/18 17:08 Direct Bilirubin 0.7 mg/dL (0-0.2) H 01/15/18 17:08 Indirect Bilirubin 1.8 mg/dL 01/15/18 17:08 AST 35 units/L (5-40) 01/15/18 17:08 ALT 27 units/L (7-56) 01/15/18 17:08 Alkaline Phosphatase 67 units/L (35-129) 01/15/18 17:08 Total Protein 7.1 g/dL (6.3-8.2) 01/15/18 17:08 Albumin 4.4 g/dL (3.9-5) 01/15/18 17:08 Albumin/Globulin Ratio 1.6 % 01/15/18 17:08 Urine Color Dark yellow (Yellow) 01/15/18 21:37 Urine Turbidity Slightly-cloudy (Clear) 01/15/18 21:37 Urine pH 5.0 (5.0-7.0) 01/15/18 21:37 Ur Specific [place] 1.016 (1.003-1.030) 01/15/18 21:37 Urine Protein <15 mg/dl mg/dL (Negative) 01/15/18 21:37 Urine Glucose (UA) Neg mg/dL (Negative) 01/15/18 21:37 Urine Ketones 20 mg/dL (Negative) 01/15/18 21:37 Urine Blood Neg (Negative) 01/15/18 21:37 Urine Nitrite Neg (Negative) 01/15/18 21:37 Urine Bilirubin Neg (Negative) 01/15/18 21:37 Urine Urobilinogen < 2.0 mg/dL (<2.0) 01/15/18 21:37 Ur Leukocyte Esterase Neg (Negative) 01/15/18 21:37 Urine WBC (Auto) 7.0 /HPF (0.0-6.0) H 01/15/18 21:37 Urine RBC (Auto) 3.0 /HPF (0.0-6.0) 01/15/18 21:37 Urine Mucus Few /HPF 01/15/18 21:37
[2018-01-19 07:48] LABS: INR 4.87 (0.87-1.13)
--- NOTE | 2018-01-19 08:19 | XRay Report ---
ROUTINE CHEST, TWO VIEWS: HISTORY: Fever. Compared to 01/15/18. Underlying emphysematous changes are suspected. Moderate infiltrate has developed throughout the right upper lobe and to a lesser extent the right lower lobe. The left lung remains clear. Heart size and pulmonary vessels appear borderline on today's exam. Small right pleural effusion is suspected. IMPRESSION: Right lung pneumonia. Emphysematous changes. Possible mild volume overload.
[2018-01-19] MEDS: NORVASC PO SCH (09:18)
[2018-01-19] MEDS: ZESTRIL PO SCH (09:18)
[2018-01-19] MEDS: HCTZ PO SCH (09:20)
[2018-01-19] MEDS: LATANOPROST 0.005% OU SCH (09:24)
[2018-01-19] MEDS: PRED FORTE 1% OU SCH (09:25)
[2018-01-19] MEDS: SODIUM CHLORIDE FLUSH SYRINGE 10 ML IV SCH ×2 (09:26→23:29)
--- NOTE | 2018-01-19 10:03 | Consultation ---
History of Present Illness Consult date: 01/19/18 Consult reason: atrial fibrillation History of present illness: Patient is a 67 year old man who presented with fever, coughs, wheezing and congestion, admitted 01/15 with pneumonia and sepsis. A cardiac consultation was requested for management of rapid atrial fibrillation. Patient denies chest pain and palpitations. There is no lower extremity edema. Patient gives a history of chronic atrial fibrillation and if followed by [facility] cardiology. He denies a history of coronary artery disease. He is on rate controlling agents and is taking warfarin for oral anticoagulation. Noted a therapeutic INR of 2.26 on presentation. This has since become supra-therapeutic ; his current INR is 4.87. His 12 lead ECG shows rapid atrial fibrillation. Past History Past Medical History: atrial fib, hypertension, hyperlipidemia Social history: , lives with family Family history: hypertension Medications and Allergies Allergies Allergy/AdvReac Type Severity Reaction Status Date / Time amoxicillin [From Augmentin] Allergy Diarrhea Verified 01/15/18 11:31 clavulanic acid Allergy Diarrhea Verified 01/15/18 11:31 [From Augmentin] Home Medications Medication Instructions Recorded Confirmed Last Taken Type Amlodipine Besylate [Norvasc] 5 mg PO DAILY 01/15/18 01/15/18 01/15/18 History AtorvaSTATin [Lipitor] 10 mg PO DAILY 01/15/18 01/15/18 01/15/18 History Brinzolamide [Azopt 1%] 1 drop OU BID 01/15/18 01/15/18 01/15/18 History Latanoprost/Pf [Latanoprost 0.005% 7.5 ml OU BID 01/15/18 01/15/18 01/15/18 History Eye Drop] Lisinopril/Hydrochlorothiazide 1 tab PO QDAY 01/15/18 01/15/18 01/15/18 History [Zestoretic 20-25 mg] Metoprolol Succinate 25 mg PO QHS 01/15/18 01/15/18 01/14/18 History Prednisolone Acetate/Pf 5 ml OU BID 01/15/18 01/15/18 01/15/18 History [Prednisolone Acet 1% Eye Drop] Timolol [Betimol] 5 ml OU BID 01/15/18 01/15/18 01/15/18 History Warfarin Sodium 5 mg PO DAILY 01/15/18 01/15/18 01/15/18 History cycloSPORINE [Restasis] 1 each OU BID 01/15/18 01/15/18 01/15/18 History Benzonatate [Tessalon Perles] 100 mg PO Q8HR #60 capsule 01/18/18 Unknown Rx guaiFENesin/CODEINE [Robitussin AC] 10 ml PO Q4H PRN #60 ml 01/18/18 Unknown Rx levoFLOXacin [Levaquin] 750 mg PO QDAY #3 tablet 01/18/18 Unknown Rx Active Meds: Active Medications Acetaminophen (Tylenol) 650 mg PO Q4H PRN PRN Reason: Pain MILD(1-3)/Fever >100.5/GERARD Albuterol (Proventil) 2.5 mg IH Q3HRT PRN PRN Reason: Shortness Of Breath Last Admin: 01/18/18 21:09 Dose: 2.5 mg Amlodipine Besylate (Norvasc) 5 mg PO DAILY [facility] Last Admin: 01/19/18 09:18 Dose: 5 mg Atorvastatin Calcium (Lipitor) 10 mg PO DAILY [facility] Last Admin: 01/19/18 09:23 Dose: 10 mg Benzonatate (Tessalon Perles) 100 mg PO Q8HR [facility] Last Admin: 01/19/18 06:54 Dose: 100 mg Hydrochlorothiazide (Hctz) 25 mg PO QDAY [facility] Last Admin: 01/19/18 09:20 Dose: 25 mg Latanoprost (Latanoprost 0.005%) 1 drops OU BID [facility] Last Admin: 01/19/18 09:24 Dose: Not Given Lisinopril (Zestril) 20 mg PO QDAY [facility] Last Admin: 01/19/18 09:18 Dose: 20 mg Metoprolol Succinate (Toprol Xl) 25 mg PO QHS [facility] Last Admin: 01/18/18 21:40 Dose: 25 mg Miscellaneous Medication (Brinzolamide [Azopt 1%]) 1 drop OU BID [facility] Miscellaneous Medication (Cyclosporine [Restasis]) 1 each OU BID [facility] Miscellaneous Medication (Timolol [Betimol]) 5 ml OU BID [facility] Ondansetron HCl (Zofran) 4 mg IV Q8H PRN PRN Reason: Nausea And Vomiting Prednisolone Acetate (Pred Forte 1%) 1 drops OU BID [facility] Last Admin: 01/19/18 09:25 Dose: Not Given Pseudoephedrine/Acetam/Chlorphenir (Robitussin Ac) 10 ml PO Q4H PRN PRN Reason: Cough Last Admin: 01/19/18 06:54 Dose: 10 ml Sodium Chloride (Sodium Chloride Flush Syringe 10 Ml) 10 ml IV BID [facility] Last Admin: 01/19/18 09:26 Dose: 10 ml Sodium Chloride (Sodium Chloride Flush Syringe 10 Ml) 10 ml IV PRN PRN PRN Reason: LINE FLUSH Last Admin: 01/17/18 17:16 Dose: 10 ml Physical Examination Vital Signs Temp Pulse Resp BP Pulse Ox 98.7 F 112 H 18 102/64 94 01/15/18 11:22 01/15/18 11:22 01/15/18 11:22 01/15/18 11:22 01/15/18 11:22 General appearance: no acute distress HEENT: Positive: PERRL Cardiac: Positive: irregularly irregular Lungs: Positive: Rales Neuro: Positive: Grossly Intact Extremities: Absent: edema Results 01/15/18 16:40 01/15/18 16:34 Coagulation 01/19/18 Range/Units 06:58 PT 49.1 H (12.2-14.9) Sec. INR 4.87 H (0.87-1.13) Assessment and Plan Pneumonia Sepsis Chronic Afib on warfarin for oral anticoagulation. INR of 2.26 on presentation Hypertension
[2018-01-19] MEDS ORDERED: PLAVIX ONE (10:50)
[2018-01-19] MEDS: PROVENTIL IH PRN (11:25)
--- NOTE | 2018-01-19 12:22 | Progress Note ---
Assessment and Plan Assessment and plan: Patient is a 67 yo man with a history of Afib on Warfarin, hypertension, glaucoma and dyslipidemia who presented with cough and sob. Pt seen and evaluated in ED and found to have Sepsis, Pneumonia. Pt initiated on sepsis protocol, and admitted to [facility] unit. * 01/19/18 2v CXR reported right lung pneumonia, emphysematous changes, possible mild volume overload. -Sepsis pneumonia: continue to treat the pneumonia, patient was still on NSS at 125ml/hr when I evaluated patient this morning, I spoke with Charge nurse, now with fluid overload, give dose of iv lasix x 1 -Afib with RVR, supratherapeutic: hold anticoagulation today and closely monitor , Cardiology to evaluate -Pneumonia, multiple lobe on the Right: on iv abx, consult Pulm -Acute hypoxic respiratory failure worsening: continue oxygen, bipap -HTN (hypertension): cardiac diet, monitor BP q shift, -HLD (hyperlipidemia): Statin therapy, low cholesterol diet Echo pending Transfer to ICU, d/w Dr. Albert stat iv lasix x 1 get ABG start bipap CCT 32 minutes History Interval history: Patient was seen and examined. Follow-up on current diagnosis. Overnight uneventful. Patient denies any chest pain, shortness breath, nausea/vomiting or severe headaches. Imaging, nursing note, chart, labs and old chart reviewed. Discussed with patient. GEN: WDWN, NAD, Awake, Alert, Orientated HEENT: NCAT, EOMI, PERRL, OP Clear NECK: supple, no adenopathy, no thyromegaly, no JVD CVS/HEART: RRR, normal S1S2, pulses present bilaterally CHEST/LUNGS: CTA B, Symmetrical chest expansion, good air entry bilaterally GI/Abdomen: soft, NTND, good bowel sounds, no guarding or rebound /Bladder: no suprapubic tenderness, no CVA or paraspinal tenderness EXT/Skin: no c/c/e, no obvious rash MSK: FROM x 4 Neuro: CN 2-12 grossly intact, no new focal deficits Psych: calm PMH: as hpi PSH: SH: FH: ROS: Constitutional: denies: fever ENT: denies: throat or neck pain Respiratory: denies: cough, shortness of breath Cardiovascular: denies: chest pain Endocrine: denies unexplained weight loss or gain Gastrointestinal: denies: abdominal pain, nausea Genitourinary: denies: dysuria Rectal: denies no incontinence, no bleeding, no itching, no discharge Musculoskeletal: denies swelling, myaglia, muscle weakness Skin: denies: rash Neurological: denies: headache Hematological/Lymphatic: denies: easy bleeding or easy bruising Allergic/Immunologic: no urticaria, no allergic rhinitis, no anaphylaxis Psych: denies sadness or hopelessness, SI/HI If blood glucose (BG) is 150-200 then give 2 units of insulin, if BG 201-250 give 4 units, if BG 251-300 give 6 u, if BG 301-350 give 8 units, if BG 351-400 give 10 units, if BG 401-450 give 12 units, if BG 451-500 give 14 units. Call MD immediately if BG>400 or less than 70 Hospitalist Physical - Constitutional Vitals: Temp Pulse Resp BP Pulse Ox 98.0 F 111 H 20 121/68 89 01/19/18 08:41 01/19/18 11:39 01/19/18 11:39 01/19/18 08:41 01/19/18 11:18 General appearance: Present: no acute distress Results - Labs CBC & Chem 7: 01/15/18 16:40 01/15/18 16:34 Labs: Laboratory Last Values WBC 17.0 K/mm3 (4.5-11.0) H 01/15/18 16:40 RBC 4.90 M/mm3 (3.65-5.03) 01/15/18 16:40 Hgb 15.6 gm/dl (11.8-15.2) H 01/15/18 16:40 Hct 45.2 % (35.5-45.6) 01/15/18 16:40 MCV 92 fl (84-94) 01/15/18 16:40 MCH 32 pg (28-32) 01/15/18 16:40 MCHC 34 % (32-34) 01/15/18 16:40 RDW 13.3 % (13.2-15.2) 01/15/18 16:40 Plt Count 241 K/mm3 (140-440) 01/15/18 16:40 Lymph % (Auto) 8.2 % (13.4-35.0) L 01/15/18 16:40 [place] % (Auto) 11.1 % (0.0-7.3) H 01/15/18 16:40 Eos % (Auto) 0.8 % (0.0-4.3) 01/15/18 16:40 Baso % (Auto) 0.7 % (0.0-1.8) 01/15/18 16:40 Lymph # 1.4 K/mm3 (1.2-5.4) 01/15/18 16:40 [place] # 1.9 K/mm3 (0.0-0.8) H 01/15/18 16:40 Eos # 0.1 K/mm3 (0.0-0.4) 01/15/18 16:40 Baso # 0.1 K/mm3 (0.0-0.1) 01/15/18 16:40 Seg Neutrophils % 79.2 % (40.0-70.0) H 01/15/18 16:40 Seg Neutrophils # 13.5 K/mm3 (1.8-7.7) H 01/15/18 16:40 PT 49.1 Sec. (12.2-14.9) H 01/19/18 06:58 INR 4.87 (0.87-1.13) H 01/19/18 06:58 VBG pH 7.412 (7.320-7.420) 01/15/18 16:34 Sodium 133 mmol/L (137-145) L 01/15/18 16:34 Potassium 3.6 mmol/L (3.6-5.0) 01/15/18 16:34 Chloride 89.8 mmol/L (98-107) L 01/15/18 16:34 Carbon Dioxide 27 mmol/L (22-30) 01/15/18 16:34 Anion Gap 20 mmol/L 01/15/18 16:34 BUN 18 mg/dL (9-20) 01/15/18 16:34 Creatinine 1.0 mg/dL (0.8-1.5) 01/15/18 16:34 Estimated GFR > 60 ml/min 01/15/18 16:34 BUN/Creatinine Ratio 18 % 01/15/18 16:34 Glucose 115 mg/dL (75-100) H 01/15/18 16:34 Lactic Acid 1.60 mmol/L (0.7-2.0) 01/16/18 05:42 Calcium 9.3 mg/dL (8.4-10.2) 01/15/18 16:34 Total Bilirubin 2.50 mg/dL (0.1-1.2) H 01/15/18 17:08 Direct Bilirubin 0.7 mg/dL (0-0.2) H 01/15/18 17:08 Indirect Bilirubin 1.8 mg/dL 01/15/18 17:08 AST 35 units/L (5-40) 01/15/18 17:08 ALT 27 units/L (7-56) 01/15/18 17:08 Alkaline Phosphatase 67 units/L (35-129) 01/15/18 17:08 Total Protein 7.1 g/dL (6.3-8.2) 01/15/18 17:08 Albumin 4.4 g/dL (3.9-5) 01/15/18 17:08 Albumin/Globulin Ratio 1.6 % 01/15/18 17:08 Urine Color Dark yellow (Yellow) 01/15/18 21:37 Urine Turbidity Slightly-cloudy (Clear) 01/15/18 21:37 Urine pH 5.0 (5.0-7.0) 01/15/18 21:37 Ur Specific [place] 1.016 (1.003-1.030) 01/15/18 21:37 Urine Protein <15 mg/dl mg/dL (Negative) 01/15/18 21:37 Urine Glucose (UA) Neg mg/dL (Negative) 01/15/18 21:37 Urine Ketones 20 mg/dL (Negative) 01/15/18 21:37 Urine Blood Neg (Negative) 01/15/18 21:37 Urine Nitrite Neg (Negative) 01/15/18 21:37 Urine Bilirubin Neg (Negative) 01/15/18 21:37 Urine Urobilinogen < 2.0 mg/dL (<2.0) 01/15/18 21:37 Ur Leukocyte Esterase Neg (Negative) 01/15/18 21:37 Urine WBC (Auto) 7.0 /HPF (0.0-6.0) H 01/15/18 21:37 Urine RBC (Auto) 3.0 /HPF (0.0-6.0) 01/15/18 21:37 Urine Mucus Few /HPF 01/15/18 21:37
[2018-01-19] MEDS ORDERED: LASIX IV ONE ×2 (13:00→20:00)
[2018-01-19] MEDS: CARDIZEM PO SCH ×2 (14:47→23:28)
[2018-01-19] MEDS ORDERED: VANCOMYCIN PHARMACY TO DOSE IV SCH (18:44)
[2018-01-19] MEDS ORDERED: VANCOMYCIN 1,750 MG in NACL 0.9% 500 ML 500 ML IV ONE (20:00)
[2018-01-19] MEDS ORDERED: LASIX ONE (23:27)
[2018-01-19] MEDS: LEVAQUIN 750MG/150ML 750 MG/150 ML BAG IV SCH (23:30)
[2018-01-19] MEDS ORDERED: NACL 0.9% 500 ML IV SCH (23:45)
[2018-01-20] MEDS: PRED FORTE 1% OU SCH ×3 (00:10→22:36)
[2018-01-20] MEDS: LATANOPROST 0.005% OU SCH ×3 (00:10→22:43)
[2018-01-20 04:58] LABS: BUN/Creatinine Ratio 17; Blood Urea Nitrogen 10 mg/dL (9-20); Calcium 7.9 mg/dL (8.4-10.2); Hemolysis Index 7
[2018-01-20 05:02] LABS: INR 4.07 (0.87-1.13)
[2018-01-20] MEDS: TESSALON PERLES PO SCH ×3 (05:27→22:35)
[2018-01-20] MEDS: CARDIZEM PO SCH ×4 (05:27→17:54)
--- NOTE | 2018-01-20 08:10 | Progress Note ---
Assessment and Plan Assessment and plan: Patient is a 67 yo man with a history of Afib on Warfarin, hypertension, glaucoma and dyslipidemia who presented with cough and sob. Pt seen and evaluated in ED and found to have Sepsis, Pneumonia. Pt initiated on sepsis protocol, and admitted to [facility] unit. * 01/19/18 2v CXR reported right lung pneumonia, emphysematous changes, possible mild volume overload. -Sepsis pneumonia: continue to treat with iv Levaquin and IV vancomycin ( allergic to pcn) -Afib with RVR, supratherapeutic: hold anticoagulation today and closely monitor , Cardiology to evaluate -Pneumonia, multiple lobe on the Right: on iv abx, consult Pulm -Acute hypoxic respiratory failure worsening: continue oxygen, bipap -HTN (hypertension): cardiac diet, monitor BP q shift, -HLD (hyperlipidemia): Statin therapy, low cholesterol diet INR, cmp, cbc, Echo pending this morning Ordered repeat CXR CCT 32 minutes History Interval history: Patient was seen and examined. Follow-up on current diagnosis of sob. Overnight uneventful. Patient denies any chest pain, nausea/vomiting or severe headaches. Imaging, nursing note, chart, labs and old chart reviewed. Discussed with patient. Also, met his and son at bedside 01/19/18. He developed acute hypoxic respiratory failure pO2 only 49% on 3L. I gave him iv lasix and he had instant diuresis, I started him on bipap and transferred to the ICU on 01/19/18. Now, he is off bipap, because he refused. He is currently on VM 40% and sats are low 90s. Overall he is doing better than yesterday. Hospitalist Physical - Physical exam Narrative exam: GEN: ill appearing, mild increase accessory muscle but less than yesterday, Awake, Alert, Orientated HEENT: NCAT, EOMI, PERRL, OP Clear NECK: supple, no adenopathy, no thyromegaly, no JVD CVS/HEART: irregular irregular normal S1S2, pulses present bilaterally CHEST/LUNGS: diminished bs with crackles right base, Symmetrical chest expansion , good air entry bilaterally GI/Abdomen: soft, NTND, good bowel sounds, no guarding or rebound /Bladder: no suprapubic tenderness, no CVA or paraspinal tenderness EXT/Skin: no c/c/e, no obvious rash MSK: FROM x 4 Neuro: CN 2-12 grossly intact, no new focal deficits Psych: calm - Constitutional Vitals: Temp Pulse Resp BP Pulse Ox 98.6 F 106 H 30 H 118/62 99 01/20/18 04:00 01/20/18 05:27 01/19/18 19:41 01/20/18 05:27 01/19/18 19:41 General appearance: Present: no acute distress Results - Labs CBC & Chem 7: 01/20/18 08:21 01/20/18 Unknown Labs: Laboratory Last Values WBC 17.0 K/mm3 (4.5-11.0) H 01/15/18 16:40 RBC 4.90 M/mm3 (3.65-5.03) 01/15/18 16:40 Hgb 15.6 gm/dl (11.8-15.2) H 01/15/18 16:40 Hct 45.2 % (35.5-45.6) 01/15/18 16:40 MCV 92 fl (84-94) 01/15/18 16:40 MCH 32 pg (28-32) 01/15/18 16:40 MCHC 34 % (32-34) 01/15/18 16:40 RDW 13.3 % (13.2-15.2) 01/15/18 16:40 Plt Count 241 K/mm3 (140-440) 01/15/18 16:40 Lymph % (Auto) 8.2 % (13.4-35.0) L 01/15/18 16:40 [place] % (Auto) 11.1 % (0.0-7.3) H 01/15/18 16:40 Eos % (Auto) 0.8 % (0.0-4.3) 01/15/18 16:40 Baso % (Auto) 0.7 % (0.0-1.8) 01/15/18 16:40 Lymph # 1.4 K/mm3 (1.2-5.4) 01/15/18 16:40 [place] # 1.9 K/mm3 (0.0-0.8) H 01/15/18 16:40 Eos # 0.1 K/mm3 (0.0-0.4) 01/15/18 16:40 Baso # 0.1 K/mm3 (0.0-0.1) 01/15/18 16:40 Seg Neutrophils % 79.2 % (40.0-70.0) H 01/15/18 16:40 Seg Neutrophils # 13.5 K/mm3 (1.8-7.7) H 01/15/18 16:40 PT 42.5 Sec. (12.2-14.9) H 01/20/18 Unknown INR 4.07 (0.87-1.13) H 01/20/18 Unknown POC ABG pH 7.395 (7.35-7.45) 01/19/18 13:24 POC ABG pCO2 47.5 (35-45) H 01/19/18 13:24 POC ABG pO2 49 (80-105) L 01/19/18 13:24 POC ABG HCO3 29.1 01/19/18 13:24 POC ABG Total CO2 31 01/19/18 13:24 POC ABG O2 Sat 84 01/19/18 13:24 POC ABG Base Excess 4 01/19/18 13:24 VBG pH 7.412 (7.320-7.420) 01/15/18 16:34 FiO2 32 % 01/19/18 13:24 Sodium 132 mmol/L (137-145) L 01/20/18 Unknown Potassium 3.4 mmol/L (3.6-5.0) L 01/20/18 Unknown Chloride 90.5 mmol/L (98-107) L 01/20/18 Unknown Carbon Dioxide 29 mmol/L (22-30) 01/20/18 Unknown Anion Gap 16 mmol/L 01/20/18 Unknown BUN 10 mg/dL (9-20) 01/20/18 Unknown Creatinine 0.6 mg/dL (0.8-1.5) L 01/20/18 Unknown Estimated GFR > 60 ml/min 01/20/18 Unknown BUN/Creatinine Ratio 17 % 01/20/18 Unknown Glucose 128 mg/dL (75-100) H 01/20/18 Unknown Lactic Acid 1.60 mmol/L (0.7-2.0) 01/16/18 05:42 Calcium 7.9 mg/dL (8.4-10.2) L D 01/20/18 Unknown Total Bilirubin 2.50 mg/dL (0.1-1.2) H 01/15/18 17:08 Direct Bilirubin 0.7 mg/dL (0-0.2) H 01/15/18 17:08 Indirect Bilirubin 1.8 mg/dL 01/15/18 17:08 AST 35 units/L (5-40) 01/15/18 17:08 ALT 27 units/L (7-56) 01/15/18 17:08 Alkaline Phosphatase 67 units/L (35-129) 01/15/18 17:08 Total Protein 7.1 g/dL (6.3-8.2) 01/15/18 17:08 Albumin 4.4 g/dL (3.9-5) 01/15/18 17:08 Albumin/Globulin Ratio 1.6 % 01/15/18 17:08 Urine Color Dark yellow (Yellow) 01/15/18 21:37 Urine Turbidity Slightly-cloudy (Clear) 01/15/18 21:37 Urine pH 5.0 (5.0-7.0) 01/15/18 21:37 Ur Specific [place] 1.016 (1.003-1.030) 01/15/18 21:37 Urine Protein <15 mg/dl mg/dL (Negative) 01/15/18 21:37 Urine Glucose (UA) Neg mg/dL (Negative) 01/15/18 21:37 Urine Ketones 20 mg/dL (Negative) 01/15/18 21:37 Urine Blood Neg (Negative) 01/15/18 21:37 Urine Nitrite Neg (Negative) 01/15/18 21:37 Urine Bilirubin Neg (Negative) 01/15/18 21:37 Urine Urobilinogen < 2.0 mg/dL (<2.0) 01/15/18 21:37 Ur Leukocyte Esterase Neg (Negative) 01/15/18 21:37 Urine WBC (Auto) 7.0 /HPF (0.0-6.0) H 01/15/18 21:37 Urine RBC (Auto) 3.0 /HPF (0.0-6.0) 01/15/18 21:37 Urine Mucus Few /HPF 01/15/18 21:37
[2018-01-20 08:32] LABS: Hematocrit 40.4 % (35.5-45.6); Hemoglobin 13.6 gm/dl (11.8-15.2); Mean Corpuscular HGB Conc 34 % (32-34); Mean Corpuscular Hemoglobin 31 pg (28-32); Mean Corpuscular Volume 93 fl (84-94); Platelet Count 257 K/mm3 (140-440); Red Blood Count 4.36 M/mm3 (3.65-5.03); Red Cell Distribution Width 13.3 % (13.2-15.2)
[2018-01-20 08:56] LABS: Alanine Aminotransferase 31 units/L (7-56); Albumin 2.7 g/dL (3.9-5); BUN/Creatinine Ratio 18; Blood Urea Nitrogen 11 mg/dL (9-20); Calcium 8.4 mg/dL (8.4-10.2); Hemolysis Index 13
--- NOTE | 2018-01-20 09:24 | XRay Report ---
AP CHEST: HISTORY: Pulmonary edema Infiltrates throughout the right lung have increased by 10-20% since yesterday's exam. The left lung remains clear. Trace right pleural effusion is suspected. No pneumothorax. Heart size and pulmonary vessels are unchanged. IMPRESSION: Mild increase in the right lung infiltrates since yesterday's exam. Trace right pleural effusion.
--- NOTE | 2018-01-20 11:14 | Consultation ---
History of Present Illness Consult date: 01/20/18 Requesting physician: BAL MORGAN Reason for consult: hypoxemia, pneumonia History of present illness: 67 y/o male, admitted for 4 days on [facility] with cough and sickness. Diagnosed with Community Acquired Pneumonia. Started on Rocephin and Azithromax. yesterday, began to have increasing oxygen requirements. Repeat CXR showed worsening of lung disease on the right. Patient was also given continuous IVF' s and there was concern for fluid overload. Given Lasix, and placed on bipap. Patient taken off bipap during the night and is currently on a 40% venti mask. Continues to cough. Family at bedside. Past History Past Medical History: atrial fib, hypertension, hyperlipidemia Past Surgical History: hernia repair, Other (finger surgery) Social history: , lives with family Family history: hypertension Medications and Allergies Allergies Allergy/AdvReac Type Severity Reaction Status Date / Time amoxicillin [From Augmentin] Allergy Diarrhea Verified 01/15/18 11:31 clavulanic acid Allergy Diarrhea Verified 01/15/18 11:31 [From Augmentin] Home Medications Medication Instructions Recorded Confirmed Last Taken Type Amlodipine Besylate [Norvasc] 5 mg PO DAILY 01/15/18 01/15/18 01/15/18 History AtorvaSTATin [Lipitor] 10 mg PO DAILY 01/15/18 01/15/18 01/15/18 History Brinzolamide [Azopt 1%] 1 drop OU BID 01/15/18 01/15/18 01/15/18 History Latanoprost/Pf [Latanoprost 0.005% 7.5 ml OU BID 01/15/18 01/15/18 01/15/18 History Eye Drop] Lisinopril/Hydrochlorothiazide 1 tab PO QDAY 01/15/18 01/15/18 01/15/18 History [Zestoretic 20-25 mg] Metoprolol Succinate 25 mg PO QHS 01/15/18 01/15/18 01/14/18 History Prednisolone Acetate/Pf 5 ml OU BID 01/15/18 01/15/18 01/15/18 History [Prednisolone Acet 1% Eye Drop] Timolol [Betimol] 5 ml OU BID 01/15/18 01/15/18 01/15/18 History Warfarin Sodium 5 mg PO DAILY 01/15/18 01/15/18 01/15/18 History cycloSPORINE [Restasis] 1 each OU BID 01/15/18 01/15/18 01/15/18 History Benzonatate [Tessalon Perles] 100 mg PO Q8HR #60 capsule 01/18/18 Unknown Rx guaiFENesin/CODEINE [Robitussin AC] 10 ml PO Q4H PRN #60 ml 01/18/18 Unknown Rx levoFLOXacin [Levaquin] 750 mg PO QDAY #3 tablet 01/18/18 Unknown Rx Active Meds: Active Medications Acetaminophen (Tylenol) 650 mg PO Q4H PRN PRN Reason: Pain MILD(1-3)/Fever >100.5/GERARD Albuterol (Proventil) 2.5 mg IH Q3HRT PRN PRN Reason: Shortness Of Breath Last Admin: 01/19/18 11:25 Dose: 2.5 mg Atorvastatin Calcium (Lipitor) 10 mg PO DAILY [facility] Last Admin: 01/19/18 09:23 Dose: 10 mg Benzonatate (Tessalon Perles) 100 mg PO Q8HR [facility] Last Admin: 01/20/18 05:27 Dose: 100 mg Diltiazem HCl (Cardizem) 60 mg PO Q6HR [facility] Last Admin: 01/20/18 05:27 Dose: 60 mg Hydrochlorothiazide (Hctz) 25 mg PO QDAY [facility] Last Admin: 01/19/18 09:20 Dose: 25 mg Levofloxacin/Dextrose (Levaquin 750mg/150ml) 750 mg in 150 mls @ 100 mls/hr IV Q24HR [facility]Y; Protocol Last Admin: 01/19/18 23:30 Dose: 100 mls/hr Vancomycin HCl 1,500 mg/ (Sodium Chloride) 530 mls @ 333.333 mls/hr IV Q12H [facility]Y Latanoprost (Latanoprost 0.005%) 1 drops OU BID [facility] Last Admin: 01/20/18 00:10 Dose: Not Given Lisinopril (Zestril) 20 mg PO QDAY [facility] Last Admin: 01/19/18 09:18 Dose: 20 mg Miscellaneous Medication (Brinzolamide [Azopt 1%]) 1 drop OU BID [facility]Y Miscellaneous Medication (Cyclosporine [Restasis]) 1 each OU BID BOY Miscellaneous Medication (Timolol [Betimol]) 5 ml OU BID [facility] Ondansetron HCl (Zofran) 4 mg IV Q8H PRN PRN Reason: Nausea And Vomiting Prednisolone Acetate (Pred Forte 1%) 1 drops OU BID [facility] Last Admin: 01/20/18 00:10 Dose: Not Given Pseudoephedrine/Acetam/Chlorphenir (Robitussin Ac) 10 ml PO Q4H PRN PRN Reason: Cough Last Admin: 01/19/18 06:54 Dose: 10 ml Sodium Chloride (Sodium Chloride Flush Syringe 10 Ml) 10 ml IV BID [facility] Last Admin: 01/19/18 23:29 Dose: 10 ml Sodium Chloride (Sodium Chloride Flush Syringe 10 Ml) 10 ml IV PRN PRN PRN Reason: LINE FLUSH Last Admin: 01/17/18 17:16 Dose: 10 ml Sodium Chloride (Nacl 0.9% 500 Ml) 0 ml IV PRN [facility] Physical Examination Vital signs: Vital Signs Temp Pulse Resp BP Pulse Ox 98.7 F 112 H 18 102/64 94 01/15/18 11:22 01/15/18 11:22 01/15/18 11:22 01/15/18 11:22 01/15/18 11:22 Results - Laboratory Findings CBC and BMP: 01/20/18 08:21 01/20/18 Unknown ABG POC ABG pH 7.395 (7.35-7.45) 01/19/18 13:24 POC ABG pCO2 47.5 (35-45) H 01/19/18 13:24 POC ABG pO2 49 (80-105) L 01/19/18 13:24 POC ABG HCO3 29.1 01/19/18 13:24 POC ABG Total CO2 31 01/19/18 13:24 POC ABG O2 Sat 84 01/19/18 13:24 PT/INR, D-dimer PT 42.5 Sec. (12.2-14.9) H 01/20/18 Unknown INR 4.07 (0.87-1.13) H 01/20/18 Unknown Abnormal lab findings: Abnormal Labs 01/15/18 01/15/18 01/15/18 11:35 11:35 16:34 WBC 17.0 H Hgb MCHC 35 H RDW 13.0 L Lymph % (Auto) 7.2 L [place] % (Auto) 11.8 H [place] # 2.0 H Seg Neutrophils % 79.8 H Seg Neutrophils # 13.6 H PT 26.4 H INR 2.26 H POC ABG pCO2 POC ABG pO2 Sodium 132 L Potassium Chloride 90.8 L Creatinine Glucose 113 H Calcium Total Bilirubin Direct Bilirubin Total Protein Albumin Urine WBC (Auto) 01/15/18 01/15/18 01/15/18 16:34 16:40 17:08 WBC 17.0 H Hgb 15.6 H MCHC RDW Lymph % (Auto) 8.2 L [place] % (Auto) 11.1 H [place] # 1.9 H Seg Neutrophils % 79.2 H Seg Neutrophils # 13.5 H PT INR POC ABG pCO2 POC ABG pO2 Sodium 133 L Potassium Chloride 89.8 L Creatinine Glucose 115 H Calcium Total Bilirubin 2.50 H 2.50 H Direct Bilirubin 0.7 H Total Protein Albumin Urine WBC (Auto) 01/15/18 01/18/18 01/18/18 21:37 03:45 06:03 WBC Hgb MCHC RDW Lymph % (Auto) [place] % (Auto) [place] # Seg Neutrophils % Seg Neutrophils # PT 51.1 H 51.3 H INR 5.12 H* 5.14 H* POC ABG pCO2 POC ABG pO2 Sodium Potassium Chloride Creatinine Glucose Calcium Total Bilirubin Direct Bilirubin Total Protein Albumin Urine WBC (Auto) 7.0 H 01/19/18 01/19/18 01/20/18 06:58 13:24 08:21 WBC 24.1 H Hgb MCHC RDW Lymph % (Auto) [place] % (Auto) [place] # Seg Neutrophils % Seg Neutrophils # PT 49.1 H INR 4.87 H POC ABG pCO2 47.5 H POC ABG pO2 49 L Sodium Potassium Chloride Creatinine Glucose Calcium Total Bilirubin Direct Bilirubin Total Protein Albumin Urine WBC (Auto) 01/20/18 01/20/18 01/20/18 08:21 Unknown Unknown WBC Hgb MCHC RDW Lymph % (Auto) [place] % (Auto) [place] # Seg Neutrophils % Seg Neutrophils # PT 42.5 H INR 4.07 H POC ABG pCO2 POC ABG pO2 Sodium 131 L 132 L Potassium 3.4 L Chloride 90.1 L 90.5 L Creatinine 0.6 L 0.6 L Glucose 151 H 128 H Calcium 7.9 L D Total Bilirubin 1.60 H Direct Bilirubin Total Protein 5.9 L Albumin 2.7 L Urine WBC (Auto) - Diagnostic Findings Chest x-ray: image reviewed (Worsening Right sided infiltrates compared to CXR from 4 days ago.) Assessment and Plan 67 y/o male with acute hypoxemic respiratory failure, most likely secondary to pneumonia, given amount of time in hospital concern for hospital acquired pathogens. 1. Change abx therapy to cover better for Pseudomonas. Will add cefepime and stop levaquin. Continue Vanc 2. Will obtain repeat ABG 3. Daily checks of INR 4. replace potassium 5. clinically improved compared to description from yesterday, ok with transfer out of ICU
[2018-01-20] MEDS: HCTZ PO SCH (11:20)
[2018-01-20] MEDS: LEVAQUIN 750MG/150ML 750 MG/150 ML BAG IV SCH (11:20)
[2018-01-20] MEDS: ZESTRIL PO SCH (11:21)
[2018-01-20] MEDS: SODIUM CHLORIDE FLUSH SYRINGE 10 ML IV SCH ×2 (11:21→22:36)
--- NOTE | 2018-01-20 11:34 | Progress Note ---
Assessment and Plan Pneumonia Sepsis Chronic Afib on warfarin for oral anticoagulation. INR of 2.26 on presentation. Pharmacy is following. Hypertension Recommend: Continue rate controlling agents for his chronic atrial fibrillation. Subjective Date of service: 01/20/18 Interval history: Patient was transferred to CCU for worsening right lung disease seen on repeat CXR. Objective Vital Signs Temp Pulse Pulse Pulse Resp Resp BP 01/20/18 11:21 118 H 118/65 01/20/18 08:00 97.5 F L 01/20/18 05:27 106 H 118/62 01/20/18 04:00 98.6 F 01/20/18 00:00 99.0 F 01/19/18 20:00 97.8 F 01/19/18 19:41 97 H 30 H 109/67 01/19/18 18:20 76 01/19/18 18:04 96 H 30 H 120/70 01/19/18 14:47 148 H 01/19/18 14:30 142 H 01/19/18 14:29 99.4 F 117 H 20 119/69 01/19/18 13:32 115 H 36 H 01/19/18 12:35 126 H 22 131/70 01/19/18 11:39 111 H 20 Pulse Ox 01/20/18 11:21 01/20/18 08:00 01/20/18 05:27 01/20/18 04:00 01/20/18 00:00 01/19/18 20:00 01/19/18 19:41 99 01/19/18 18:20 98 01/19/18 18:04 95 01/19/18 14:47 01/19/18 14:30 90 01/19/18 14:29 89 01/19/18 13:32 94 01/19/18 12:35 86 01/19/18 11:39 - Physical Examination General: No Apparent Distress HEENT: Positive: PERRL Cardiac: Positive: irregularly irregular Neuro: Positive: Grossly Intact Extremities: Absent: edema - Labs and Meds Cardiac Enzymes 01/20/18 Range/Units 08:21 AST 24 (5-40) units/L Coagulation 01/20/18 Range/Units Unknown PT 42.5 H (12.2-14.9) Sec. INR 4.07 H (0.87-1.13) CBC 01/20/18 Range/Units 08:21 WBC 24.1 H (4.5-11.0) K/mm3 RBC 4.36 (3.65-5.03) M/mm3 Hgb 13.6 (11.8-15.2) gm/dl Hct 40.4 (35.5-45.6) % Plt Count 257 (140-440) K/mm3 Comprehensive Metabolic Panel 01/20/18 01/20/18 Range/Units 08:21 Unknown Sodium 131 L 132 L (137-145) mmol/L Potassium 3.6 3.4 L (3.6-5.0) mmol/L Chloride 90.1 L 90.5 L (98-107) mmol/L Carbon Dioxide 30 29 (22-30) mmol/L BUN 11 10 (9-20) mg/dL Creatinine 0.6 L 0.6 L (0.8-1.5) mg/dL Glucose 151 H 128 H (75-100) mg/dL Calcium 8.4 7.9 L D (8.4-10.2) mg/dL AST 24 (5-40) units/L ALT 31 (7-56) units/L Alkaline Phosphatase 86 (35-129) units/L Total Protein 5.9 L (6.3-8.2) g/dL Albumin 2.7 L (3.9-5) g/dL
[2018-01-20] MEDS ORDERED: K-DUR PO ONE (12:00)
[2018-01-20] MEDS: MAXIPIME/NS 2 GM/100 ML 2 GM/100 ML BAG IV SCH ×2 (14:09→22:35)
[2018-01-20] MEDS: VANCOMYCIN 1,500 MG in NACL 0.9% 500 ML 500 ML IV SCH (14:28)
[2018-01-20] MEDS: PROVENTIL IH SCH (22:57)
[2018-01-21] MEDS: CARDIZEM PO SCH ×5 (01:28→23:36)
[2018-01-21] MEDS: VANCOMYCIN 1,500 MG in NACL 0.9% 500 ML 500 ML IV SCH ×2 (01:29→15:07)
[2018-01-21] MEDS: MAXIPIME/NS 2 GM/100 ML 2 GM/100 ML BAG IV SCH ×3 (05:28→23:34)
[2018-01-21] MEDS: TESSALON PERLES PO SCH ×3 (05:29→23:35)
[2018-01-21 06:35] LABS: INR 3.49 (0.87-1.13)
[2018-01-21] MEDS: PROVENTIL IH SCH ×2 (08:23→20:39)
--- NOTE | 2018-01-21 09:02 | Progress Note ---
Assessment and Plan Assessment and plan: Patient is a 67 yo man with a history of Afib on Warfarin, hypertension, glaucoma and dyslipidemia who presented with cough and sob. Pt seen and evaluated in ED and found to have Sepsis, Pneumonia. Pt initiated on sepsis protocol, and admitted to [facility] unit. * 01/19/18 2v CXR reported right lung pneumonia, emphysematous changes, possible mild volume overload. -Sepsis pneumonia: continue to treat with iv Levaquin and IV vancomycin ( allergic to pcn) -Afib with RVR, supratherapeutic: hold anticoagulation today and closely monitor , Cardiology to evaluate -Pneumonia, multiple lobe on the Right: on iv abx, consult Pulm -Acute hypoxic respiratory failure worsening: continue oxygen, bipap -HTN (hypertension): cardiac diet, monitor BP q shift, -HLD (hyperlipidemia): Statin therapy, low cholesterol diet hemoptysis: will d/w Dr. Albert, may need to give vitamin k, INR is 3.49 History Interval history: Patient was seen and examined. Follow-up on current diagnosis of sob. Overnight with hemopytosis. Patient denies any chest pain, nausea/vomiting or severe headaches. Imaging, nursing note, chart, labs and old chart reviewed. Discussed with patient. Also, met his and son at bedside 01/19/18. He developed acute hypoxic respiratory failure pO2 only 49% on 3L. I gave him iv lasix and he had instant diuresis, I started him on bipap and transferred to the ICU on 01/19/18. Now, he is off bipap , because he refused. He is currently on VM 40% and sats are low 90s. Overall he is doing better than yesterday. Hospitalist Physical - Physical exam Narrative exam: GEN: ill appearing, mild increase accessory muscle but less than yesterday, Awake, Alert, Orientated HEENT: NCAT, EOMI, PERRL, OP Clear NECK: supple, no adenopathy, no thyromegaly, no JVD CVS/HEART: irregular irregular normal S1S2, pulses present bilaterally CHEST/LUNGS: diminished bs with crackles right base, Symmetrical chest expansion , good air entry bilaterally GI/Abdomen: soft, NTND, good bowel sounds, no guarding or rebound /Bladder: no suprapubic tenderness, no CVA or paraspinal tenderness EXT/Skin: no c/c/e, no obvious rash MSK: FROM x 4 Neuro: CN 2-12 grossly intact, no new focal deficits Psych: calm - Constitutional Vitals: Temp Pulse Resp BP Pulse Ox 97.3 F L 100 H 18 101/56 94 01/21/18 07:42 01/21/18 08:23 01/21/18 08:23 01/21/18 07:42 01/21/18 08:25 General appearance: Present: no acute distress Results - Labs CBC & Chem 7: 01/20/18 08:21 01/20/18 Unknown Labs: Laboratory Last Values WBC 24.1 K/mm3 (4.5-11.0) H 01/20/18 08:21 RBC 4.36 M/mm3 (3.65-5.03) 01/20/18 08:21 Hgb 13.6 gm/dl (11.8-15.2) 01/20/18 08:21 Hct 40.4 % (35.5-45.6) 01/20/18 08:21 MCV 93 fl (84-94) 01/20/18 08:21 MCH 31 pg (28-32) 01/20/18 08:21 MCHC 34 % (32-34) 01/20/18 08:21 RDW 13.3 % (13.2-15.2) 01/20/18 08:21 Plt Count 257 K/mm3 (140-440) 01/20/18 08:21 Lymph % (Auto) 8.2 % (13.4-35.0) L 01/15/18 16:40 [place] % (Auto) 11.1 % (0.0-7.3) H 01/15/18 16:40 Eos % (Auto) 0.8 % (0.0-4.3) 01/15/18 16:40 Baso % (Auto) 0.7 % (0.0-1.8) 01/15/18 16:40 Lymph # 1.4 K/mm3 (1.2-5.4) 01/15/18 16:40 [place] # 1.9 K/mm3 (0.0-0.8) H 01/15/18 16:40 Eos # 0.1 K/mm3 (0.0-0.4) 01/15/18 16:40 Baso # 0.1 K/mm3 (0.0-0.1) 01/15/18 16:40 Seg Neutrophils % 79.2 % (40.0-70.0) H 01/15/18 16:40 Seg Neutrophils # 13.5 K/mm3 (1.8-7.7) H 01/15/18 16:40 PT 37.5 Sec. (12.2-14.9) H 01/21/18 06:03 INR 3.49 (0.87-1.13) H 01/21/18 06:03 POC ABG pH 7.502 (7.35-7.45) H 01/20/18 13:23 POC ABG pCO2 42.9 (35-45) 01/20/18 13:23 POC ABG pO2 61 (80-105) L 01/20/18 13:23 POC ABG HCO3 33.6 01/20/18 13:23 POC ABG Total CO2 35 01/20/18 13:23 POC ABG O2 Sat 93 01/20/18 13:23 POC ABG Base Excess 10 01/20/18 13:23 VBG pH 7.412 (7.320-7.420) 01/15/18 16:34 FiO2 40 % 01/20/18 13:23 Sodium 132 mmol/L (137-145) L 01/20/18 Unknown Potassium 3.4 mmol/L (3.6-5.0) L 01/20/18 Unknown Chloride 90.5 mmol/L (98-107) L 01/20/18 Unknown Carbon Dioxide 29 mmol/L (22-30) 01/20/18 Unknown Anion Gap 16 mmol/L 01/20/18 Unknown BUN 10 mg/dL (9-20) 01/20/18 Unknown Creatinine 0.6 mg/dL (0.8-1.5) L 01/20/18 Unknown Estimated GFR > 60 ml/min 01/20/18 Unknown BUN/Creatinine Ratio 17 % 01/20/18 Unknown Glucose 128 mg/dL (75-100) H 01/20/18 Unknown Lactic Acid 1.60 mmol/L (0.7-2.0) 01/16/18 05:42 Calcium 7.9 mg/dL (8.4-10.2) L D 01/20/18 Unknown Total Bilirubin 1.60 mg/dL (0.1-1.2) H 01/20/18 08:21 Direct Bilirubin 0.7 mg/dL (0-0.2) H 01/15/18 17:08 Indirect Bilirubin 1.8 mg/dL 01/15/18 17:08 AST 24 units/L (5-40) 01/20/18 08:21 ALT 31 units/L (7-56) 01/20/18 08:21 Alkaline Phosphatase 86 units/L (35-129) 01/20/18 08:21 Total Protein 5.9 g/dL (6.3-8.2) L 01/20/18 08:21 Albumin 2.7 g/dL (3.9-5) L 01/20/18 08:21 Albumin/Globulin Ratio 0.8 % 01/20/18 08:21 Urine Color Dark yellow (Yellow) 01/15/18 21:37 Urine Turbidity Slightly-cloudy (Clear) 01/15/18 21:37 Urine pH 5.0 (5.0-7.0) 01/15/18 21:37 Ur Specific [place] 1.016 (1.003-1.030) 01/15/18 21:37 Urine Protein <15 mg/dl mg/dL (Negative) 01/15/18 21:37 Urine Glucose (UA) Neg mg/dL (Negative) 01/15/18 21:37 Urine Ketones 20 mg/dL (Negative) 01/15/18 21:37 Urine Blood Neg (Negative) 01/15/18 21:37 Urine Nitrite Neg (Negative) 01/15/18 21:37 Urine Bilirubin Neg (Negative) 01/15/18 21:37 Urine Urobilinogen < 2.0 mg/dL (<2.0) 01/15/18 21:37 Ur Leukocyte Esterase Neg (Negative) 01/15/18 21:37 Urine WBC (Auto) 7.0 /HPF (0.0-6.0) H 01/15/18 21:37 Urine RBC (Auto) 3.0 /HPF (0.0-6.0) 01/15/18 21:37 Urine Mucus Few /HPF 01/15/18 21:37
--- NOTE | 2018-01-21 09:09 | Progress Note ---
Assessment and Plan Pneumonia Sepsis Chronic Afib on warfarin for oral anticoagulation. INR of 2.26 on presentation. Pharmacy is following. on cardizem for rate control. Hypertension Recommend: Continue rate controlling agents for his chronic atrial fibrillation. Otherwise, conservative cardiac management. Subjective Date of service: 01/21/18 Interval history: Patient is sitting up in bed; venturi mask is in place. Objective Vital Signs Temp Pulse Pulse Pulse Resp Resp Resp 01/21/18 08:25 01/21/18 08:23 100 H 18 01/21/18 07:42 97.3 F L 100 H 20 01/21/18 05:29 96 H 01/21/18 02:48 98.0 F 90 20 01/21/18 01:28 90 01/20/18 23:16 89 20 01/20/18 23:01 01/20/18 23:00 97 H 22 01/20/18 22:00 90 20 01/20/18 21:02 99.9 F H 90 01/20/18 17:54 102 H 01/20/18 13:35 99.0 F 100 H 20 01/20/18 13:00 155 H 01/20/18 12:54 111 H 01/20/18 12:30 107 H 01/20/18 12:00 98.2 F 119 H 01/20/18 11:30 107 H 01/20/18 11:21 118 H 01/20/18 11:00 113 H 01/20/18 10:30 117 H 01/20/18 10:00 136 H 31 H 19 01/20/18 09:30 100 H 27 H BP Pulse Ox 01/21/18 08:25 94 01/21/18 08:23 01/21/18 07:42 101/56 97 01/21/18 05:29 129/68 01/21/18 02:48 95/54 89 01/21/18 01:28 108/66 01/20/18 23:16 01/20/18 23:01 92 01/20/18 23:00 01/20/18 22:00 97 01/20/18 21:02 108/66 89 01/20/18 17:54 114/51 01/20/18 13:35 114/67 92 01/20/18 13:00 118/64 01/20/18 12:54 118/64 01/20/18 12:30 118/64 91 01/20/18 12:00 128/64 95 01/20/18 11:30 118/65 85 01/20/18 11:21 118/65 01/20/18 11:00 118/65 94 01/20/18 10:30 118/66 94 01/20/18 10:00 113/64 93 01/20/18 09:30 113/64 94 - Physical Examination General: No Apparent Distress HEENT: Positive: PERRL Cardiac: Positive: irregularly irregular Neuro: Positive: Grossly Intact Extremities: Absent: edema - Labs and Meds Coagulation 01/21/18 Range/Units 06:03 PT 37.5 H (12.2-14.9) Sec. INR 3.49 H (0.87-1.13)
[2018-01-21] MEDS: HCTZ PO SCH (10:33)
[2018-01-21] MEDS: ZESTRIL PO SCH (10:33)
[2018-01-21] MEDS: SODIUM CHLORIDE FLUSH SYRINGE 10 ML IV SCH ×2 (10:33→23:36)
[2018-01-21] MEDS: LATANOPROST 0.005% OU SCH ×2 (10:35→23:44)
[2018-01-21] MEDS ORDERED: K-DUR PO ONE (14:59)
--- NOTE | 2018-01-21 15:06 | Progress Note ---
Assessment and Plan 67 y/o male with acute hypoxemic respiratory failure, most likely secondary to pneumonia, given amount of time in hospital concern for hospital acquired pathogens. 1. Change abx therapy to cover better for Pseudomonas. Will add cefepime and stop levaquin. Continue Vanc 2. Will obtain repeat ABG 3. Daily checks of INR 4. In regards to hemoptysis, need to have coagualoapty corrected if possible. No indication for bronch at this. Subjective Date of service: 01/21/18 Interval history: patient with some hemoptysis per report. Breathing appears comfortable but remains on venti-mask. Sats in the mid 90's. INR is still supratherapeutic Objective Vital Signs - 12hr 01/21/18 01/21/18 01/21/18 05:29 07:42 08:23 Temperature 97.3 F L Pulse Rate 96 H 100 H Pulse Rate [ 100 H Right Lower Lobe] Respiratory 20 Rate Respiratory 18 Rate [Right Lower Lobe] Blood Pressure 129/68 101/56 O2 Sat by Pulse 97 Oximetry 01/21/18 01/21/18 01/21/18 08:25 10:00 10:33 Temperature Pulse Rate 100 H Pulse Rate [ Right Lower Lobe] Respiratory 22 Rate Respiratory Rate [Right Lower Lobe] Blood Pressure 101/56 O2 Sat by Pulse 94 Oximetry 01/21/18 14:00 Temperature 97.9 F Pulse Rate 105 H Pulse Rate [ Right Lower Lobe] Respiratory 20 Rate Respiratory Rate [Right Lower Lobe] Blood Pressure 128/75 O2 Sat by Pulse 95 Oximetry CBC and BMP: 01/20/18 08:21 01/20/18 Unknown ABG, PT/INR, D-dimer: ABG POC ABG pH 7.502 (7.35-7.45) H 01/20/18 13:23 POC ABG pCO2 42.9 (35-45) 01/20/18 13:23 POC ABG pO2 61 (80-105) L 01/20/18 13:23 POC ABG HCO3 33.6 01/20/18 13:23 POC ABG Total CO2 35 01/20/18 13:23 POC ABG O2 Sat 93 01/20/18 13:23 PT/INR, D-dimer PT 37.5 Sec. (12.2-14.9) H 01/21/18 06:03 INR 3.49 (0.87-1.13) H 01/21/18 06:03 Abnormal lab findings: Abnormal Labs 01/15/18 01/15/18 01/15/18 11:35 11:35 16:34 WBC 17.0 H Hgb MCHC 35 H RDW 13.0 L Lymph % (Auto) 7.2 L [place] % (Auto) 11.8 H [place] # 2.0 H Seg Neutrophils % 79.8 H Seg Neutrophils # 13.6 H PT 26.4 H INR 2.26 H POC ABG pH POC ABG pCO2 POC ABG pO2 Sodium 132 L Potassium Chloride 90.8 L Creatinine Glucose 113 H Calcium Total Bilirubin Direct Bilirubin Total Protein Albumin Urine WBC (Auto) 01/15/18 01/15/18 01/15/18 16:34 16:40 17:08 WBC 17.0 H Hgb 15.6 H MCHC RDW Lymph % (Auto) 8.2 L [place] % (Auto) 11.1 H [place] # 1.9 H Seg Neutrophils % 79.2 H Seg Neutrophils # 13.5 H PT INR POC ABG pH POC ABG pCO2 POC ABG pO2 Sodium 133 L Potassium Chloride 89.8 L Creatinine Glucose 115 H Calcium Total Bilirubin 2.50 H 2.50 H Direct Bilirubin 0.7 H Total Protein Albumin Urine WBC (Auto) 01/15/18 01/18/18 01/18/18 21:37 03:45 06:03 WBC Hgb MCHC RDW Lymph % (Auto) [place] % (Auto) [place] # Seg Neutrophils % Seg Neutrophils # PT 51.1 H 51.3 H INR 5.12 H* 5.14 H* POC ABG pH POC ABG pCO2 POC ABG pO2 Sodium Potassium Chloride Creatinine Glucose Calcium Total Bilirubin Direct Bilirubin Total Protein Albumin Urine WBC (Auto) 7.0 H 01/19/18 01/19/18 01/20/18 06:58 13:24 08:21 WBC 24.1 H Hgb MCHC RDW Lymph % (Auto) [place] % (Auto) [place] # Seg Neutrophils % Seg Neutrophils # PT 49.1 H INR 4.87 H POC ABG pH POC ABG pCO2 47.5 H POC ABG pO2 49 L Sodium Potassium Chloride Creatinine Glucose Calcium Total Bilirubin Direct Bilirubin Total Protein Albumin Urine WBC (Auto) 01/20/18 01/20/18 01/20/18 08:21 13:23 Unknown WBC Hgb MCHC RDW Lymph % (Auto) [place] % (Auto) [place] # Seg Neutrophils % Seg Neutrophils # PT 42.5 H INR 4.07 H POC ABG pH 7.502 H POC ABG pCO2 POC ABG pO2 61 L Sodium 131 L Potassium Chloride 90.1 L Creatinine 0.6 L Glucose 151 H Calcium Total Bilirubin 1.60 H Direct Bilirubin Total Protein 5.9 L Albumin 2.7 L Urine WBC (Auto) 01/20/18 01/21/18 Unknown 06:03 WBC Hgb MCHC RDW Lymph % (Auto) [place] % (Auto) [place] # Seg Neutrophils % Seg Neutrophils # PT 37.5 H INR 3.49 H POC ABG pH POC ABG pCO2 POC ABG pO2 Sodium 132 L Potassium 3.4 L Chloride 90.5 L Creatinine 0.6 L Glucose 128 H Calcium 7.9 L D Total Bilirubin Direct Bilirubin Total Protein Albumin Urine WBC (Auto)
[2018-01-21] MEDS ORDERED: VITAMIN K *ORAL LIQUID PO ONE (16:53)
[2018-01-21] MEDS: ROBITUSSIN AC PO PRN (23:36)
[2018-01-21] MEDS: PRED FORTE 1% OU SCH ×2 (23:37→23:46)
[2018-01-22] MEDS: VANCOMYCIN 1,500 MG in NACL 0.9% 500 ML 500 ML IV SCH ×2 (02:00→14:03)
[2018-01-22 06:22] LABS: Hematocrit 41.3 % (35.5-45.6); Hemoglobin 13.9 gm/dl (11.8-15.2); Mean Corpuscular HGB Conc 34 % (32-34); Mean Corpuscular Hemoglobin 31 pg (28-32); Mean Corpuscular Volume 94 fl (84-94); Platelet Count 214 K/mm3 (140-440); Red Blood Count 4.42 M/mm3 (3.65-5.03); Red Cell Distribution Width 13.7 % (13.2-15.2)
[2018-01-22] MEDS: MAXIPIME/NS 2 GM/100 ML 2 GM/100 ML BAG IV SCH ×3 (06:29→23:25)
[2018-01-22] MEDS: ROBITUSSIN AC PO PRN (06:30)
[2018-01-22] MEDS: CARDIZEM PO SCH ×4 (06:31→23:26)
[2018-01-22] MEDS: TESSALON PERLES PO SCH ×3 (06:31→23:26)
[2018-01-22 06:33] LABS: INR 2.06 (0.87-1.13)
[2018-01-22 06:34] LABS: BUN/Creatinine Ratio 20; Blood Urea Nitrogen 12 mg/dL (9-20); Hemolysis Index 5
[2018-01-22] MEDS: PROVENTIL IH SCH ×2 (08:10→21:33)
--- NOTE | 2018-01-22 08:36 | Progress Note ---
Assessment and Plan Pneumonia Sepsis Hemoptysis with supratherapeutic INR s/p vit K Chronic Afib on warfarin for oral anticoagulation. INR of 2.26 on presentation. Pharmacy is following. on cardizem for rate control. Hypertension Subjective Date of service: 01/22/18 Interval history: Patient is sitting up in bedside chair. Venturi mask is in place. No distress noted. INR today is 2.06. Objective Vital Signs Temp Pulse Pulse Resp Resp Resp Resp 01/22/18 08:29 83 20 01/22/18 08:12 96 H 20 01/22/18 06:31 99 H 01/22/18 02:37 98.7 F 99 H 18 01/21/18 23:36 95 H 01/21/18 22:00 20 20 20 01/21/18 20:59 01/21/18 20:55 98.6 F 95 H 92 H 18 18 01/21/18 19:04 106 H 01/21/18 19:02 106 H 01/21/18 14:00 97.9 F 105 H 20 01/21/18 12:20 99 H 01/21/18 10:33 100 H 01/21/18 10:00 106 H 22 BP Pulse Ox 01/22/18 08:29 01/22/18 08:12 93 01/22/18 06:31 116/70 01/22/18 02:37 116/70 94 01/21/18 23:36 140/72 01/21/18 22:00 94 01/21/18 20:59 96 01/21/18 20:55 140/72 89 01/21/18 19:04 126/68 01/21/18 19:02 126/68 92 01/21/18 14:00 128/75 95 01/21/18 12:20 125/70 01/21/18 10:33 101/56 01/21/18 10:00 - Physical Examination General: No Apparent Distress HEENT: Positive: PERRL Cardiac: Positive: irregularly irregular Neuro: Positive: Grossly Intact Extremities: Absent: edema - Labs and Meds Coagulation 01/22/18 Range/Units 05:53 PT 23.8 H (12.2-14.9) Sec. INR 2.06 H (0.87-1.13) CBC 01/22/18 Range/Units 05:53 WBC 18.7 H (4.5-11.0) K/mm3 RBC 4.42 (3.65-5.03) M/mm3 Hgb 13.9 (11.8-15.2) gm/dl Hct 41.3 (35.5-45.6) % Plt Count 214 (140-440) K/mm3 Comprehensive Metabolic Panel 01/22/18 Range/Units 05:53 Sodium 139 D (137-145) mmol/L Potassium 4.1 (3.6-5.0) mmol/L Chloride 98.8 (98-107) mmol/L Carbon Dioxide 30 (22-30) mmol/L BUN 12 (9-20) mg/dL Creatinine 0.6 L (0.8-1.5) mg/dL Glucose 126 H (75-100) mg/dL Calcium 8.0 L (8.4-10.2) mg/dL
[2018-01-22] MEDS: HCTZ PO SCH (10:05)
[2018-01-22] MEDS: LATANOPROST 0.005% OU SCH (10:07)
[2018-01-22] MEDS: PRED FORTE 1% OU SCH ×2 (10:09→22:30)
[2018-01-22] MEDS: SODIUM CHLORIDE FLUSH SYRINGE 10 ML IV SCH ×2 (10:58→23:27)
[2018-01-22] MEDS ORDERED: LASIX IV ONE (13:34)
[2018-01-22] MEDS: ZESTRIL PO SCH (14:06)
--- NOTE | 2018-01-22 14:19 | Progress Note ---
Assessment and Plan 67 y/o male with acute hypoxemic respiratory failure, most likely secondary to pneumonia, given amount of time in hospital concern for hospital acquired pathogens. 1. Continue Cefepime and Vanc 2. Repeat ABG later this afternoon 3. Bipap therapy now, continuous 4. Low threshold to move to higher level of care but for now, will watch in current location Subjective Date of service: 01/22/18 Interval history: Had an acute episodes of desaturation. Awake and alert. Placed on bipap and obtained ABG. Hypoxic but stable. CXR is actually slightly better. Objective Vital Signs - 12hr 01/22/18 01/22/18 01/22/18 02:37 06:31 07:51 Temperature 98.7 F 97.8 F Pulse Rate 99 H 99 H 95 H Pulse Rate [ Right Lower Lobe] Respiratory 18 20 Rate Respiratory Rate [Right Lower Lobe] Blood Pressure 116/70 116/70 114/43 Blood Pressure [Left] O2 Sat by Pulse 94 86 Oximetry 01/22/18 01/22/18 01/22/18 08:00 08:12 08:29 Temperature Pulse Rate Pulse Rate [ 96 H 83 Right Lower Lobe] Respiratory Rate Respiratory 20 20 Rate [Right Lower Lobe] Blood Pressure Blood Pressure [Left] O2 Sat by Pulse 92 93 Oximetry 01/22/18 01/22/18 01/22/18 13:01 13:02 13:06 Temperature Pulse Rate 109 H 109 H 108 H Pulse Rate [ Right Lower Lobe] Respiratory Rate Respiratory Rate [Right Lower Lobe] Blood Pressure 101/57 101/57 Blood Pressure 111/53 [Left] O2 Sat by Pulse 84 Oximetry 01/22/18 01/22/18 01/22/18 13:13 13:23 13:32 Temperature Pulse Rate 104 H 113 H 102 H Pulse Rate [ Right Lower Lobe] Respiratory 36 H 30 H Rate Respiratory Rate [Right Lower Lobe] Blood Pressure Blood Pressure [Left] O2 Sat by Pulse 88 91 87 Oximetry 01/22/18 01/22/18 01/22/18 13:36 13:42 14:01 Temperature Pulse Rate 107 H 106 H Pulse Rate [ Right Lower Lobe] Respiratory 30 H Rate Respiratory Rate [Right Lower Lobe] Blood Pressure 100/56 109/60 Blood Pressure [Left] O2 Sat by Pulse 89 89 93 Oximetry 01/22/18 14:06 Temperature Pulse Rate 95 H Pulse Rate [ Right Lower Lobe] Respiratory Rate Respiratory Rate [Right Lower Lobe] Blood Pressure 114/43 Blood Pressure [Left] O2 Sat by Pulse Oximetry Constitutional: no acute distress, alert Eyes: non-icteric ENT: other (Full face bipap face mask) Neck: supple Ascultation: Right: rhonchi, Left: clear Percussion: Bilateral: not dull Cardiovascular: other (sinus tach) Gastrointestinal: normoactive bowel sounds, soft Extremities: no cyanosis, no edema Neurologic: normal mental status CBC and BMP: 01/22/18 05:53 01/22/18 05:53 ABG, PT/INR, D-dimer: ABG POC ABG pH 7.412 (7.35-7.45) 01/22/18 13:33 POC ABG pCO2 45.2 (35-45) H 01/22/18 13:33 POC ABG pO2 57 (80-105) L 01/22/18 13:33 POC ABG HCO3 28.8 01/22/18 13:33 POC ABG Total CO2 30 01/22/18 13:33 POC ABG O2 Sat 89 01/22/18 13:33 PT/INR, D-dimer PT 23.8 Sec. (12.2-14.9) H 01/22/18 05:53 INR 2.06 (0.87-1.13) H 01/22/18 05:53 Abnormal lab findings: Abnormal Labs 01/15/18 01/15/18 01/15/18 11:35 11:35 16:34 WBC 17.0 H Hgb MCHC 35 H RDW 13.0 L Lymph % (Auto) 7.2 L [place] % (Auto) 11.8 H [place] # 2.0 H Seg Neutrophils % 79.8 H Seg Neutrophils # 13.6 H PT 26.4 H INR 2.26 H POC ABG pH POC ABG pCO2 POC ABG pO2 Sodium 132 L Potassium Chloride 90.8 L Creatinine Glucose 113 H Calcium Total Bilirubin Direct Bilirubin Total Protein Albumin Urine WBC (Auto) 01/15/18 01/15/18 01/15/18 16:34 16:40 17:08 WBC 17.0 H Hgb 15.6 H MCHC RDW Lymph % (Auto) 8.2 L [place] % (Auto) 11.1 H [place] # 1.9 H Seg Neutrophils % 79.2 H Seg Neutrophils # 13.5 H PT INR POC ABG pH POC ABG pCO2 POC ABG pO2 Sodium 133 L Potassium Chloride 89.8 L Creatinine Glucose 115 H Calcium Total Bilirubin 2.50 H 2.50 H Direct Bilirubin 0.7 H Total Protein Albumin Urine WBC (Auto) 01/15/18 01/18/18 01/18/18 21:37 03:45 06:03 WBC Hgb MCHC RDW Lymph % (Auto) [place] % (Auto) [place] # Seg Neutrophils % Seg Neutrophils # PT 51.1 H 51.3 H INR 5.12 H* 5.14 H* POC ABG pH POC ABG pCO2 POC ABG pO2 Sodium Potassium Chloride Creatinine Glucose Calcium Total Bilirubin Direct Bilirubin Total Protein Albumin Urine WBC (Auto) 7.0 H 01/19/18 01/19/18 01/20/18 06:58 13:24 08:21 WBC 24.1 H Hgb MCHC RDW Lymph % (Auto) [place] % (Auto) [place] # Seg Neutrophils % Seg Neutrophils # PT 49.1 H INR 4.87 H POC ABG pH POC ABG pCO2 47.5 H POC ABG pO2 49 L Sodium Potassium Chloride Creatinine Glucose Calcium Total Bilirubin Direct Bilirubin Total Protein Albumin Urine WBC (Auto) 01/20/18 01/20/18 01/20/18 08:21 13:23 Unknown WBC Hgb MCHC RDW Lymph % (Auto) [place] % (Auto) [place] # Seg Neutrophils % Seg Neutrophils # PT 42.5 H INR 4.07 H POC ABG pH 7.502 H POC ABG pCO2 POC ABG pO2 61 L Sodium 131 L Potassium Chloride 90.1 L Creatinine 0.6 L Glucose 151 H Calcium Total Bilirubin 1.60 H Direct Bilirubin Total Protein 5.9 L Albumin 2.7 L Urine WBC (Auto) 01/20/18 01/21/18 01/22/18 Unknown 06:03 05:53 WBC Hgb MCHC RDW Lymph % (Auto) [place] % (Auto) [place] # Seg Neutrophils % Seg Neutrophils # PT 37.5 H 23.8 H INR 3.49 H 2.06 H POC ABG pH POC ABG pCO2 POC ABG pO2 Sodium 132 L Potassium 3.4 L Chloride 90.5 L Creatinine 0.6 L Glucose 128 H Calcium 7.9 L D Total Bilirubin Direct Bilirubin Total Protein Albumin Urine WBC (Auto) 01/22/18 01/22/18 01/22/18 05:53 05:53 13:33 WBC 18.7 H Hgb MCHC RDW Lymph % (Auto) [place] % (Auto) [place] # Seg Neutrophils % Seg Neutrophils # PT INR POC ABG pH POC ABG pCO2 45.2 H POC ABG pO2 57 L Sodium Potassium Chloride Creatinine 0.6 L Glucose 126 H Calcium 8.0 L Total Bilirubin Direct Bilirubin Total Protein Albumin Urine WBC (Auto) Chest x-ray: image reviewed (as stated above)
--- NOTE | 2018-01-22 14:20 | Progress Note ---
Assessment and Plan Assessment and plan: Patient is a 67 yo man with a history of Afib on Warfarin, hypertension, glaucoma and dyslipidemia who presented with cough and sob. Pt seen and evaluated in ED and found to have Sepsis, Pneumonia. Pt initiated on sepsis protocol, and admitted to [facility] unit. * 01/19/18 2v CXR reported right lung pneumonia, emphysematous changes, possible mild volume overload. -Sepsis pneumonia: continue to treat with iv Levaquin and IV vancomycin ( allergic to pcn) -Afib with RVR, supratherapeutic: hold anticoagulation today and closely monitor , Cardiology to evaluate -Pneumonia, multiple lobe on the Right: on iv abx, consult Pulm -Acute hypoxic respiratory failure worsening: continue oxygen, bipap re-started , give stat dose of iv lasix, ordered stat abg, d/w Dr. Albert -HTN (hypertension): cardiac diet, monitor BP q shift, -HLD (hyperlipidemia): Statin therapy, low cholesterol diet -Hemoptysis: will d/w Dr. Albert, INR was 3.49, gave 5mg po vitamin k History Interval history: Patient was seen and examined. Follow-up on current diagnosis of sob. Overnight with hemopytosis. Patient denies any chest pain, nausea/vomiting or severe headaches. Imaging, nursing note, chart, labs and old chart reviewed. Discussed with patient. Also, met his and son at bedside 01/19/18. He developed acute hypoxic respiratory failure pO2 only 49% on 3L. I gave him iv lasix and he had instant diuresis, I started him on bipap and transferred to the ICU on 01/19/18. Now, he is off bipap , because he refused. He is currently on VM 40% and sats are low 90s. Overall he is doing better than yesterday. Hospitalist Physical - Physical exam Narrative exam: GEN: ill appearing, mild increase accessory muscle but less than yesterday, Awake, Alert, Orientated HEENT: NCAT, EOMI, PERRL, OP Clear NECK: supple, no adenopathy, no thyromegaly, no JVD CVS/HEART: irregular irregular normal S1S2, pulses present bilaterally CHEST/LUNGS: diminished bs with crackles right base, Symmetrical chest expansion , good air entry bilaterally GI/Abdomen: soft, NTND, good bowel sounds, no guarding or rebound /Bladder: no suprapubic tenderness, no CVA or paraspinal tenderness EXT/Skin: no c/c/e, no obvious rash MSK: FROM x 4 Neuro: CN 2-12 grossly intact, no new focal deficits Psych: calm - Constitutional Vitals: Temp Pulse Resp BP Pulse Ox 97.8 F 95 H 30 H 114/43 93 01/22/18 07:51 01/22/18 14:06 01/22/18 13:36 01/22/18 14:06 01/22/18 14:01 General appearance: Present: no acute distress Results - Labs CBC & Chem 7: 01/22/18 05:53 01/22/18 05:53 Labs: Laboratory Last Values WBC 18.7 K/mm3 (4.5-11.0) H 01/22/18 05:53 RBC 4.42 M/mm3 (3.65-5.03) 01/22/18 05:53 Hgb 13.9 gm/dl (11.8-15.2) 01/22/18 05:53 Hct 41.3 % (35.5-45.6) 01/22/18 05:53 MCV 94 fl (84-94) 01/22/18 05:53 MCH 31 pg (28-32) 01/22/18 05:53 MCHC 34 % (32-34) 01/22/18 05:53 RDW 13.7 % (13.2-15.2) 01/22/18 05:53 Plt Count 214 K/mm3 (140-440) 01/22/18 05:53 Lymph % (Auto) 8.2 % (13.4-35.0) L 01/15/18 16:40 [place] % (Auto) 11.1 % (0.0-7.3) H 01/15/18 16:40 [place] % (Auto) 0.8 % (0.0-4.3) 01/15/18 16:40 Baso % (Auto) 0.7 % (0.0-1.8) 01/15/18 16:40 Lymph # 1.4 K/mm3 (1.2-5.4) 01/15/18 16:40 [place] # 1.9 K/mm3 (0.0-0.8) H 01/15/18 16:40 Eos # 0.1 K/mm3 (0.0-0.4) 01/15/18 16:40 Baso # 0.1 K/mm3 (0.0-0.1) 01/15/18 16:40 Seg Neutrophils % 79.2 % (40.0-70.0) H 01/15/18 16:40 Seg Neutrophils # 13.5 K/mm3 (1.8-7.7) H 01/15/18 16:40 PT 23.8 Sec. (12.2-14.9) H 01/22/18 05:53 INR 2.06 (0.87-1.13) H 01/22/18 05:53 POC ABG pH 7.412 (7.35-7.45) 01/22/18 13:33 POC ABG pCO2 45.2 (35-45) H 01/22/18 13:33 POC ABG pO2 57 (80-105) L 01/22/18 13:33 POC ABG HCO3 28.8 01/22/18 13:33 POC ABG Total CO2 30 01/22/18 13:33 POC ABG O2 Sat 89 01/22/18 13:33 POC ABG Base Excess 4 01/22/18 13:33 VBG pH 7.412 (7.320-7.420) 01/15/18 16:34 FiO2 55 % 01/22/18 13:33 Sodium 139 mmol/L (137-145) D 01/22/18 05:53 Potassium 4.1 mmol/L (3.6-5.0) 01/22/18 05:53 Chloride 98.8 mmol/L (98-107) 01/22/18 05:53 Carbon Dioxide 30 mmol/L (22-30) 01/22/18 05:53 Anion Gap 14 mmol/L 01/22/18 05:53 BUN 12 mg/dL (9-20) 01/22/18 05:53 Creatinine 0.6 mg/dL (0.8-1.5) L 01/22/18 05:53 Estimated GFR > 60 ml/min 01/22/18 05:53 BUN/Creatinine Ratio 20 % 01/22/18 05:53 Glucose 126 mg/dL (75-100) H 01/22/18 05:53 Lactic Acid 1.60 mmol/L (0.7-2.0) 01/16/18 05:42 Calcium 8.0 mg/dL (8.4-10.2) L 01/22/18 05:53 Total Bilirubin 1.60 mg/dL (0.1-1.2) H 01/20/18 08:21 Direct Bilirubin 0.7 mg/dL (0-0.2) H 01/15/18 17:08 Indirect Bilirubin 1.8 mg/dL 01/15/18 17:08 AST 24 units/L (5-40) 01/20/18 08:21 ALT 31 units/L (7-56) 01/20/18 08:21 Alkaline Phosphatase 86 units/L (35-129) 01/20/18 08:21 Total Protein 5.9 g/dL (6.3-8.2) L 01/20/18 08:21 Albumin 2.7 g/dL (3.9-5) L 01/20/18 08:21 Albumin/Globulin Ratio 0.8 % 01/20/18 08:21 Urine Color Dark yellow (Yellow) 01/15/18 21:37 Urine Turbidity Slightly-cloudy (Clear) 01/15/18 21:37 Urine pH 5.0 (5.0-7.0) 01/15/18 21:37 Ur Specific [place] 1.016 (1.003-1.030) 01/15/18 21:37 Urine Protein <15 mg/dl mg/dL (Negative) 01/15/18 21:37 Urine Glucose (UA) Neg mg/dL (Negative) 01/15/18 21:37 Urine Ketones 20 mg/dL (Negative) 01/15/18 21:37 Urine Blood Neg (Negative) 01/15/18 21:37 Urine Nitrite Neg (Negative) 01/15/18 21:37 Urine Bilirubin Neg (Negative) 01/15/18 21:37 Urine Urobilinogen < 2.0 mg/dL (<2.0) 01/15/18 21:37 Ur Leukocyte Esterase Neg (Negative) 01/15/18 21:37 Urine WBC (Auto) 7.0 /HPF (0.0-6.0) H 01/15/18 21:37 Urine RBC (Auto) 3.0 /HPF (0.0-6.0) 01/15/18 21:37 Urine Mucus Few /HPF 01/15/18 21:37 Vancomycin Trough 10.8 ug/mL (5.0-20.0) 01/22/18 12:56
[2018-01-22] MEDS ORDERED: LASIX IV SCH (14:30)
--- NOTE | 2018-01-22 14:44 | XRay Report ---
PORTABLE CHEST INDICATION: Hypoxemia. COMPARISON: 01/20/2018 FINDINGS: Portable, frontal chest radiograph again demonstrates extensive asymmetric right lung opacities/consolidation, the largest/most confluent approximately 6.5 cm in the upper to mid lung zone while approximately 6.4 cm inferiorly. Right hemidiaphragm now mildly elevated. Small bibasilar effusions. No cephalization. Stable cardiomediastinal silhouette, aortic knob calcifications, EKG leads and multilevel thoracic spondylosis. CONCLUSION: Asymmetric right lung opacities/pneumonias again noted with small pleural effusions, as described. Thank you for the opportunity to participate in this patient's care.
[2018-01-22] MEDS ORDERED: LASIX IV NR (22:35)
[2018-01-23] MEDS: LATANOPROST 0.005% OU SCH ×2 (03:12→10:06)
[2018-01-23] MEDS: VANCOMYCIN 1,500 MG in NACL 0.9% 500 ML 500 ML IV SCH (03:24)
[2018-01-23] MEDS: CARDIZEM PO SCH ×3 (05:11→17:50)
[2018-01-23] MEDS: TESSALON PERLES PO SCH ×2 (05:11→15:25)
[2018-01-23] MEDS: MAXIPIME/NS 2 GM/100 ML 2 GM/100 ML BAG IV SCH ×2 (05:12→14:03)
[2018-01-23 07:16] LABS: Hematocrit 38.9 % (35.5-45.6); Hemoglobin 13.1 gm/dl (11.8-15.2); Mean Corpuscular HGB Conc 34 % (32-34); Mean Corpuscular Hemoglobin 32 pg (28-32); Mean Corpuscular Volume 94 fl (84-94); Platelet Count 115 K/mm3 (140-440); Red Blood Count 4.14 M/mm3 (3.65-5.03); Red Cell Distribution Width 13.6 % (13.2-15.2)
[2018-01-23 07:27] LABS: BUN/Creatinine Ratio 19; Blood Urea Nitrogen 15 mg/dL (9-20); Calcium 8.3 mg/dL (8.4-10.2); Hemolysis Index 4
[2018-01-23 07:34] LABS: INR 1.61 (0.87-1.13)
[2018-01-23] MEDS: PROVENTIL IH SCH ×2 (08:07→21:30)
[2018-01-23] MEDS: ZESTRIL PO SCH (09:50)
[2018-01-23] MEDS: HCTZ PO SCH (09:51)
[2018-01-23] MEDS: SODIUM CHLORIDE FLUSH SYRINGE 10 ML IV SCH (09:52)
--- NOTE | 2018-01-23 09:56 | Progress Note ---
Assessment and Plan 1. Pneumonia/Sepsis 2. Status post supratherapeutic INR 3. Chronic atrial fibrillation 4. Systemic arterial hypertension 5. Chronic obstructive pulmonary disease Plan. Resume anticoagulation, continue antibiotic therapy, continue present cardiac medication. Subjective Date of service: 01/23/18 Interval history: No cardiac symptoms Objective Vital Signs Temp Pulse Pulse Pulse Resp Resp Resp 01/23/18 09:50 104 H 01/23/18 09:46 136 H 16 01/23/18 08:16 111 H 20 01/23/18 08:07 107 H 20 01/23/18 08:05 01/23/18 07:56 98.0 F 126 H 22 01/23/18 04:47 01/23/18 03:56 108 H 01/23/18 02:43 98.0 F 100 H 18 01/22/18 23:23 102 H 20 01/22/18 22:00 102 H 20 01/22/18 21:40 111 H 22 01/22/18 21:34 01/22/18 21:33 105 H 22 01/22/18 21:21 98.8 F 113 H 18 01/22/18 18:33 109 H 01/22/18 18:29 121 H 01/22/18 18:06 95 H 30 H 01/22/18 15:50 117 H 01/22/18 14:19 115 H 01/22/18 14:06 95 H 01/22/18 14:01 106 H 01/22/18 13:42 107 H 01/22/18 13:36 30 H 01/22/18 13:32 102 H 30 H 01/22/18 13:23 113 H 01/22/18 13:13 104 H 36 H 01/22/18 13:06 108 H 01/22/18 13:02 109 H 01/22/18 13:01 109 H 01/22/18 10:00 99 H 20 BP BP Pulse Ox 01/23/18 09:50 01/23/18 09:46 118/53 91 01/23/18 08:16 01/23/18 08:07 01/23/18 08:05 92 01/23/18 07:56 94/67 76 L 01/23/18 04:47 94 01/23/18 03:56 01/23/18 02:43 149/66 95 01/22/18 23:23 92 09/14/18 22:00 92 01/22/18 21:40 01/22/18 21:34 92 01/22/18 21:33 01/22/18 21:21 140/54 89 01/22/18 18:33 135/76 96 01/22/18 18:29 135/76 96 01/22/18 18:06 01/22/18 15:50 121/71 91 01/22/18 14:19 116/53 93 01/22/18 14:06 114/43 01/22/18 14:01 109/60 93 01/22/18 13:42 100/56 89 01/22/18 13:36 89 01/22/18 13:32 87 01/22/18 13:23 91 01/22/18 13:13 88 01/22/18 13:06 111/53 01/22/18 13:02 101/57 01/22/18 13:01 101/57 84 01/22/18 10:00 - Physical Examination General: No Apparent Distress HEENT: Positive: PERRL Neck: Positive: neck supple. Negative: JVD/HJR Cardiac: Positive: Regular Rate, S1/S2. Negative: S3, S4 Lungs: Positive: Wheezes, Rhonchi Neuro: Positive: Grossly Intact Abdomen: Positive: Soft, Active Bowel Sounds Extremities: Absent: edema - Labs and Meds Coagulation 01/23/18 Range/Units 06:05 PT 19.7 H (12.2-14.9) Sec. INR 1.61 H (0.87-1.13) CBC 01/23/18 Range/Units 06:05 WBC 23.7 H (4.5-11.0) K/mm3 RBC 4.14 (3.65-5.03) M/mm3 Hgb 13.1 (11.8-15.2) gm/dl Hct 38.9 (35.5-45.6) % Plt Count 115 L (140-440) K/mm3 Comprehensive Metabolic Panel 01/23/18 Range/Units 06:05 Sodium 138 (137-145) mmol/L Potassium 3.9 (3.6-5.0) mmol/L Chloride 95.5 L (98-107) mmol/L Carbon Dioxide 32 H (22-30) mmol/L BUN 15 (9-20) mg/dL Creatinine 0.8 (0.8-1.5) mg/dL Glucose 141 H (75-100) mg/dL Calcium 8.3 L (8.4-10.2) mg/dL
[2018-01-23] MEDS: PRED FORTE 1% OU SCH (10:07)
--- NOTE | 2018-01-23 12:52 | Progress Note ---
Assessment and Plan 67 y/o male with acute hypoxemic respiratory failure, most likely secondary to pneumonia, given amount of time in hospital concern for hospital acquired pathogens. 1. Continue Cefepime and Vanc 2. Will start patient on BID steroid therapy, BID pulmicort and brovana and add PRN neb treatments 3. Continue PRN bipap therapy 4. If not improvement, will move to ICU. Patient may require advanced care for his hypoxemia if he does not respond to the above therapies. Unable to bronch right now secondary to O2 requirement. If he does require mechanical ventilation and intubation, will bronch. Overall prognosis is guarded. Subjective Date of service: 01/23/18 Interval history: O2 requirement still not improved with lasix therapy. Clinically does not look worse but numbers are. CXR is stable. Son at bedside. Now with Shingles. Objective Vital Signs - 12hr 01/23/18 01/23/18 01/23/18 02:43 03:56 04:47 Temperature 98.0 F Pulse Rate 100 H 108 H Pulse Rate [ Posterior Right Throughout] Respiratory 18 Rate Respiratory Rate [Posterior Right Throughout] Blood Pressure 149/66 O2 Sat by Pulse 95 94 Oximetry 01/23/18 01/23/18 01/23/18 07:56 08:05 08:07 Temperature 98.0 F Pulse Rate 126 H Pulse Rate [ 107 H Posterior Right Throughout] Respiratory 22 Rate Respiratory 20 Rate [Posterior Right Throughout] Blood Pressure 94/67 O2 Sat by Pulse 76 L 92 Oximetry 01/23/18 01/23/18 01/23/18 08:16 09:46 09:50 Temperature Pulse Rate 136 H 104 H Pulse Rate [ 111 H Posterior Right Throughout] Respiratory 16 Rate Respiratory 20 Rate [Posterior Right Throughout] Blood Pressure 118/53 O2 Sat by Pulse 91 Oximetry 01/23/18 10:00 Temperature Pulse Rate 107 H Pulse Rate [ Posterior Right Throughout] Respiratory 20 Rate Respiratory Rate [Posterior Right Throughout] Blood Pressure O2 Sat by Pulse 98 Oximetry Constitutional: no acute distress, alert Eyes: non-icteric ENT: other (Full face bipap face mask) Neck: supple Ascultation: Right: rhonchi, Left: clear Percussion: Bilateral: not dull Cardiovascular: other (sinus tach) Gastrointestinal: normoactive bowel sounds, soft Extremities: no cyanosis, no edema Neurologic: normal mental status CBC and BMP: 01/23/18 06:05 01/23/18 06:05 ABG, PT/INR, D-dimer: ABG POC ABG pH 7.433 (7.35-7.45) 01/22/18 22:57 POC ABG pCO2 47.5 (35-45) H 01/22/18 22:57 POC ABG pO2 56 (80-105) L 01/22/18 22:57 POC ABG HCO3 31.7 01/22/18 22:57 POC ABG Total CO2 33 01/22/18 22:57 POC ABG O2 Sat 89 01/22/18 22:57 PT/INR, D-dimer PT 19.7 Sec. (12.2-14.9) H 01/23/18 06:05 INR 1.61 (0.87-1.13) H 01/23/18 06:05 Abnormal lab findings: Abnormal Labs 01/15/18 01/15/18 01/15/18 11:35 11:35 16:34 WBC 17.0 H Hgb MCHC 35 H RDW 13.0 L Plt Count Lymph % (Auto) 7.2 L [place] % (Auto) 11.8 H [place] # 2.0 H Seg Neutrophils % 79.8 H Seg Neutrophils # 13.6 H PT 26.4 H INR 2.26 H POC ABG pH POC ABG pCO2 POC ABG pO2 Sodium 132 L Potassium Chloride 90.8 L Carbon Dioxide Creatinine Glucose 113 H Calcium Total Bilirubin Direct Bilirubin Total Protein Albumin Urine WBC (Auto) 01/15/18 01/15/18 01/15/18 16:34 16:40 17:08 WBC 17.0 H Hgb 15.6 H MCHC RDW Plt Count Lymph % (Auto) 8.2 L [place] % (Auto) 11.1 H [place] # 1.9 H Seg Neutrophils % 79.2 H Seg Neutrophils # 13.5 H PT INR POC ABG pH POC ABG pCO2 POC ABG pO2 Sodium 133 L Potassium Chloride 89.8 L Carbon Dioxide Creatinine Glucose 115 H Calcium Total Bilirubin 2.50 H 2.50 H Direct Bilirubin 0.7 H Total Protein Albumin Urine WBC (Auto) 01/15/18 01/18/18 01/18/18 21:37 03:45 06:03 WBC Hgb MCHC RDW Plt Count Lymph % (Auto) [place] % (Auto) [place] # Seg Neutrophils % Seg Neutrophils # PT 51.1 H 51.3 H INR 5.12 H* 5.14 H* POC ABG pH POC ABG pCO2 POC ABG pO2 Sodium Potassium Chloride Carbon Dioxide Creatinine Glucose Calcium Total Bilirubin Direct Bilirubin Total Protein Albumin Urine WBC (Auto) 7.0 H 01/19/18 01/19/18 01/20/18 06:58 13:24 08:21 WBC 24.1 H Hgb MCHC RDW Plt Count Lymph % (Auto) [place] % (Auto) [place] # Seg Neutrophils % Seg Neutrophils # PT 49.1 H INR 4.87 H POC ABG pH POC ABG pCO2 47.5 H POC ABG pO2 49 L Sodium Potassium Chloride Carbon Dioxide Creatinine Glucose Calcium Total Bilirubin Direct Bilirubin Total Protein Albumin Urine WBC (Auto) 01/20/18 01/20/18 01/20/18 08:21 13:23 Unknown WBC Hgb MCHC RDW Plt Count Lymph % (Auto) [place] % (Auto) [place] # Seg Neutrophils % Seg Neutrophils # PT 42.5 H INR 4.07 H POC ABG pH 7.502 H POC ABG pCO2 POC ABG pO2 61 L Sodium 131 L Potassium Chloride 90.1 L Carbon Dioxide Creatinine 0.6 L Glucose 151 H Calcium Total Bilirubin 1.60 H Direct Bilirubin Total Protein 5.9 L Albumin 2.7 L Urine WBC (Auto) 01/20/18 01/21/18 01/22/18 Unknown 06:03 05:53 WBC Hgb MCHC RDW Plt Count Lymph % (Auto) [place] % (Auto) [place] # Seg Neutrophils % Seg Neutrophils # PT 37.5 H 23.8 H INR 3.49 H 2.06 H POC ABG pH POC ABG pCO2 POC ABG pO2 Sodium 132 L Potassium 3.4 L Chloride 90.5 L Carbon Dioxide Creatinine 0.6 L Glucose 128 H Calcium 7.9 L D Total Bilirubin Direct Bilirubin Total Protein Albumin Urine WBC (Auto) 01/22/18 01/22/18 01/22/18 05:53 05:53 13:33 WBC 18.7 H Hgb MCHC RDW Plt Count Lymph % (Auto) [place] % (Auto) [place] # Seg Neutrophils % Seg Neutrophils # PT INR POC ABG pH POC ABG pCO2 45.2 H POC ABG pO2 57 L Sodium Potassium Chloride Carbon Dioxide Creatinine 0.6 L Glucose 126 H Calcium 8.0 L Total Bilirubin Direct Bilirubin Total Protein Albumin Urine WBC (Auto) 01/22/18 01/22/18 01/23/18 18:06 22:57 06:05 WBC Hgb MCHC RDW Plt Count Lymph % (Auto) [place] % (Auto) [place] # Seg Neutrophils % Seg Neutrophils # PT 19.7 H INR 1.61 H POC ABG pH 7.453 H POC ABG pCO2 47.5 H POC ABG pO2 58 L 56 L Sodium Potassium Chloride Carbon Dioxide Creatinine Glucose Calcium Total Bilirubin Direct Bilirubin Total Protein Albumin Urine WBC (Auto) 01/23/18 01/23/18 06:05 06:05 WBC 23.7 H Hgb MCHC RDW Plt Count 115 L Lymph % (Auto) [place] % (Auto) [place] # Seg Neutrophils % Seg Neutrophils # PT INR POC ABG pH POC ABG pCO2 POC ABG pO2 Sodium Potassium Chloride 95.5 L Carbon Dioxide 32 H Creatinine Glucose 141 H Calcium 8.3 L Total Bilirubin Direct Bilirubin Total Protein Albumin Urine WBC (Auto)
[2018-01-23] MEDS ORDERED: SOLU-Medrol IV SCH ×2 (13:00)
[2018-01-23] MEDS: PULMICORT IH SCH ×2 (13:37→21:30)
[2018-01-23] MEDS: BROVANA NEBU IH SCH ×2 (13:37→21:29)
[2018-01-23] MEDS ORDERED: VANCOMYCIN 1,750 MG in NACL 0.9% 500 ML 500 ML IV SCH (14:00)
--- NOTE | 2018-01-23 14:51 | Progress Note ---
Assessment and Plan Assessment and plan: Patient is a 67 yo man with a history of Afib on Warfarin, hypertension, glaucoma and dyslipidemia who presented with cough and sob. Pt seen and evaluated in ED and found to have Sepsis, Pneumonia. Pt initiated on sepsis protocol, and admitted to [facility] unit. * 01/19/18 2v CXR reported right lung pneumonia, emphysematous changes, possible mild volume overload. -Sepsis pneumonia: continue to treat with iv Levaquin and IV vancomycin ( allergic to pcn) -Afib with RVR, Cardiology to evaluate, anticoagulation resumed. -Pneumonia, multiple lobe on the Right: on iv abx, consult Pulm -Acute hypoxic respiratory failure worsening: continue oxygen, bipap prn, give stat dose of iv lasix, ordered stat abg, d/w Dr. Albert, he will start iv steroids -HTN (hypertension): cardiac diet, monitor BP q shift, -HLD (hyperlipidemia): Statin therapy, -Hemoptysis: will d/w Dr. Albert, INR was 3.49, gave 5mg po vitamin k, now resolved -Right buttock Shingles: start Isolation, iv steroids should help I called [place] again today at 2:45pm. Await call back. Trying to get patient transfer because he is out of Insurance network here. at bedside History Interval history: Patient was seen and examined. Follow-up on current diagnosis of sob. Overnight with hemopytosis. Patient denies any chest pain, nausea/vomiting or severe headaches. Imaging, nursing note, chart, labs and old chart reviewed. Discussed with patient. Also, met his and son at bedside 01/19/18. He developed acute hypoxic respiratory failure pO2 only 49% on 3L. I gave him iv lasix and he had instant diuresis, I started him on bipap and transferred to the ICU on 01/19/18. Now, he is off bipap , because he refused. He is currently on VM 40% and sats are low 90s. Overall he is doing better than yesterday. Hospitalist Physical - Physical exam Narrative exam: GEN: ill appearing, mild increase accessory muscle but less than yesterday, Awake, Alert, Orientated HEENT: NCAT, EOMI, PERRL, OP Clear NECK: supple, no adenopathy, no thyromegaly, no JVD CVS/HEART: irregular irregular normal S1S2, pulses present bilaterally CHEST/LUNGS: diminished bs with crackles right base, Symmetrical chest expansion , good air entry bilaterally GI/Abdomen: soft, NTND, good bowel sounds, no guarding or rebound /Bladder: no suprapubic tenderness, no CVA or paraspinal tenderness EXT/Skin: no c/c/e, no obvious rash MSK: FROM x 4 Neuro: CN 2-12 grossly intact, no new focal deficits Psych: calm - Constitutional Vitals: Temp Pulse Resp BP Pulse Ox 99.6 F 104 H 22 131/63 90 01/23/18 14:04 01/23/18 14:05 01/23/18 14:04 01/23/18 14:04 01/23/18 14:05 General appearance: Present: no acute distress Results - Labs CBC & Chem 7: 01/23/18 06:05 01/23/18 06:05 Labs: Laboratory Last Values WBC 23.7 K/mm3 (4.5-11.0) H 01/23/18 06:05 RBC 4.14 M/mm3 (3.65-5.03) 01/23/18 06:05 Hgb 13.1 gm/dl (11.8-15.2) 01/23/18 06:05 Hct 38.9 % (35.5-45.6) 01/23/18 06:05 MCV 94 fl (84-94) 01/23/18 06:05 MCH 32 pg (28-32) 01/23/18 06:05 MCHC 34 % (32-34) 01/23/18 06:05 RDW 13.6 % (13.2-15.2) 01/23/18 06:05 Plt Count 115 K/mm3 (140-440) L 01/23/18 06:05 Lymph % (Auto) 8.2 % (13.4-35.0) L 01/15/18 16:40 [place] % (Auto) 11.1 % (0.0-7.3) H 01/15/18 16:40 Eos % (Auto) 0.8 % (0.0-4.3) 01/15/18 16:40 Baso % (Auto) 0.7 % (0.0-1.8) 01/15/18 16:40 Lymph # 1.4 K/mm3 (1.2-5.4) 01/15/18 16:40 [place] # 1.9 K/mm3 (0.0-0.8) H 01/15/18 16:40 Eos # 0.1 K/mm3 (0.0-0.4) 01/15/18 16:40 Baso # 0.1 K/mm3 (0.0-0.1) 01/15/18 16:40 Seg Neutrophils % 79.2 % (40.0-70.0) H 01/15/18 16:40 Seg Neutrophils # 13.5 K/mm3 (1.8-7.7) H 01/15/18 16:40 PT 19.7 Sec. (12.2-14.9) H 01/23/18 06:05 INR 1.61 (0.87-1.13) H 01/23/18 06:05 POC ABG pH 7.433 (7.35-7.45) 01/22/18 22:57 POC ABG pCO2 47.5 (35-45) H 01/22/18 22:57 POC ABG pO2 56 (80-105) L 01/22/18 22:57 POC ABG HCO3 31.7 01/22/18 22:57 POC ABG Total CO2 33 01/22/18 22:57 POC ABG O2 Sat 89 01/22/18 22:57 POC ABG Base Excess 7 01/22/18 22:57 VBG pH 7.412 (7.320-7.420) 01/15/18 16:34 FiO2 100 % 01/22/18 22:57 Sodium 138 mmol/L (137-145) 01/23/18 06:05 Potassium 3.9 mmol/L (3.6-5.0) 01/23/18 06:05 Chloride 95.5 mmol/L (98-107) L 01/23/18 06:05 Carbon Dioxide 32 mmol/L (22-30) H 01/23/18 06:05 Anion Gap 14 mmol/L 01/23/18 06:05 BUN 15 mg/dL (9-20) 01/23/18 06:05 Creatinine 0.8 mg/dL (0.8-1.5) 01/23/18 06:05 Estimated GFR > 60 ml/min 01/23/18 06:05 BUN/Creatinine Ratio 19 % 01/23/18 06:05 Glucose 141 mg/dL (75-100) H 01/23/18 06:05 Lactic Acid 1.60 mmol/L (0.7-2.0) 01/16/18 05:42 Calcium 8.3 mg/dL (8.4-10.2) L 01/23/18 06:05 Total Bilirubin 1.60 mg/dL (0.1-1.2) H 01/20/18 08:21 Direct Bilirubin 0.7 mg/dL (0-0.2) H 01/15/18 17:08 Indirect Bilirubin 1.8 mg/dL 01/15/18 17:08 AST 24 units/L (5-40) 01/20/18 08:21 ALT 31 units/L (7-56) 01/20/18 08:21 Alkaline Phosphatase 86 units/L (35-129) 01/20/18 08:21 Total Protein 5.9 g/dL (6.3-8.2) L 01/20/18 08:21 Albumin 2.7 g/dL (3.9-5) L 01/20/18 08:21 Albumin/Globulin Ratio 0.8 % 01/20/18 08:21 Urine Color Dark yellow (Yellow) 01/15/18 21:37 Urine Turbidity Slightly-cloudy (Clear) 01/15/18 21:37 Urine pH 5.0 (5.0-7.0) 01/15/18 21:37 Ur Specific [place] 1.016 (1.003-1.030) 01/15/18 21:37 Urine Protein <15 mg/dl mg/dL (Negative) 01/15/18 21:37 Urine Glucose (UA) Neg mg/dL (Negative) 01/15/18 21:37 Urine Ketones 20 mg/dL (Negative) 01/15/18 21:37 Urine Blood Neg (Negative) 01/15/18 21:37 Urine Nitrite Neg (Negative) 01/15/18 21:37 Urine Bilirubin Neg (Negative) 01/15/18 21:37 Urine Urobilinogen < 2.0 mg/dL (<2.0) 01/15/18 21:37 Ur Leukocyte Esterase Neg (Negative) 01/15/18 21:37 Urine WBC (Auto) 7.0 /HPF (0.0-6.0) H 01/15/18 21:37 Urine RBC (Auto) 3.0 /HPF (0.0-6.0) 01/15/18 21:37 Urine Mucus Few /HPF 01/15/18 21:37 Vancomycin Trough 10.8 ug/mL (5.0-20.0) 01/22/18 12:56
[2018-01-23] MEDS ORDERED: COUMADIN PO SCH (17:00)
--- NOTE | 2018-01-23 17:43 | Discharge Summary ---
Providers - Providers Date of Admission: 01/15/18 20:57 Attending physician: BAL MORGAN 01/19/18 06:57 Consult to Physician [CONS] Routine Comment: spoke to nidia/joaquín Consulting Provider: KENDALL GÓMEZ Physician Instructions: Reason For Exam: afib with rvr 01/19/18 12:45 Consult to Physician [CONS] Routine Comment: CALLED OFFICE/JOAQUÍN Consulting Provider: EZEQUIEL ALBERT Physician Instructions: Reason For Exam: respiratory failure Primary care physician: GUERRERO BLACBKURN Hospitalization Condition: Fair Hospital course: Mr. Heart is a 67 yo man with a history of Afib on Warfarin, hypertension, glaucoma and dyslipidemia who presented to [facility] ED on 01/15/2018 with cough and sob. He was diagnosis with Sepsis, Pneumonia. Pt initiated on sepsis protocol with IVF and abx. He was admitted to [facility] ([facility]) medical unit. Then 01/19/18, clinically he became worse, 2v CXR reported right lung pneumonia, emphysematous changes, possible mild volume overload. He developed AFib with RVR. The IVF was stopped and he was given IV lasix, He was moved to the ICU on Bipap. He did well and Bipap was stopped and he was transferred back to the [facility] unit on 01/20/18. He developed hemoptysis and anticoagulation was held and he received 5 mg of oral vitamin K. Then on 01/21/18, I was called by case management, Marilia, who told me that patient needs to be transferred to [facility] because he was out of (insurance) network. So, I called [facility] and they did not have any available medical beds. Next day, Marilia informed me to try [facility], which I called and was unsuccessful. Today, I called [facility] transfer center again and patient was accepted by ALEJANDRA Jones who has accepted pt for [employer] Dr. Willy Malagon. Currently, patient is on high flow O2 with Bipap on standby. * 01/19/18 2D Echo report left ventricular chamber size is normal, estimated EF 50-55%, left atrium is moderately dilated, mild aortic leaflet calcification, mitral annular calcification, small pericardial effusion seen adjacent to the right ventricle, a small atrial septal defect is demonstrated by color doppler, right ventricular cavity size and function is normal -Sepsis pneumonia: on IV Cefepime and IV vancomycin (allergic to pcn) -Afib with RVR, Cardiology to evaluate, anticoagulation resumed. -Pneumonia, multiple lobe on the Right: on iv abx, consult Pulm -Acute hypoxic respiratory failure worsening: continue oxygen, bipap prn, give stat dose of iv lasix, ordered stat abg, d/w Dr. Albert, he will start iv steroids, considering Bronch once o2 requirement lessens. -HTN (hypertension): cardiac diet, monitor BP q shift, -HLD (hyperlipidemia): Statin therapy, -Hemoptysis: will d/w Dr. Albert, INR was 3.49, given 5mg po vitamin k on , now hemoptysis resolved -Right buttock Shingles: start Isolation, iv steroids should help Disposition: [id number]/TX-[id number] ANOTHER TYPE THCARE Time spent for discharge: 38 minutes Core Measure Documentation - Palliative Care Palliative Care/ Comfort Measures: Not Applicable - Core Measures Any of the following diagnoses?: none - VTE Discharge Requirements Deep Vein Thrombosis/Pulmonary Embolism Present on Admission: No Has pt received <5 days of overlap therapy or INR<2.0: No Anticoagulant overlap therapy prescribed at discharge: No Contraindication No Overlap Therapy order at DC: Not Indicated Exam - Physical Exam Narrative exam: GEN: thin frail debilated looking gentlement who appears ill with mild increase accessory muscle yesterday, Awake, Alert, Orientated HEENT: NCAT, OP Clear, left eye conjunctiva is red NECK: supple, no adenopathy, no thyromegaly, no JVD CVS/HEART: irregular irregular normal S1S2, pulses present bilaterally CHEST/LUNGS: diminished bs with crackles right base, Symmetrical chest expansion , good air entry bilaterally GI/Abdomen: soft, NTND, good bowel sounds, no guarding or rebound /Bladder: no suprapubic tenderness, no CVA or paraspinal tenderness EXT/Skin: no c/c/e, left buttock dermatoma vertical vesicles MSK: FROM x 4, Neuro: CN 2-12 grossly intact, no new focal deficits Psych: calm, deconditioning - Constitutional Vitals: Temp Pulse Resp BP Pulse Ox 99.6 F 104 H 22 131/63 90 01/23/18 14:04 01/23/18 14:05 01/23/18 14:04 01/23/18 14:04 01/23/18 14:05 Plan Activity: up only with assistance, fall precautions, other (no strenous activity ) Diet: low salt Follow up with: GUERRERO BLACKBURN MD [Primary Care Provider] - 3-5 Days Forms: Warfarin Discharge Instruction
[2018-01-23 19:35] VITALS: BP 93/63
== END 2018-01-23 23:30 | disposition short-term general hospital (02) | DRG 871 ==
LOC: ED 10:12 → 2B-ACE 20:57 → CC1 01-19 18:23 → 2B-ACE 01-20 13:19 → CC1 01-23 18:14
PROVIDERS: ADMIT Internal Medicine; ATTEND Internal Medicine
PROC: 5A09357 Assistance with Respiratory Ventilation, Less than 24 Consecutive Hours, Continuous Positive Airway Pressure (ICD-10-PCS; 2018-01-19)
PROC: 4A033R1 Measurement of Arterial Saturation, Peripheral, Percutaneous Approach (ICD-10-PCS; principal; 2018-01-20)
PROC: 5A09357 Assistance with Respiratory Ventilation, Less than 24 Consecutive Hours, Continuous Positive Airway Pressure (ICD-10-PCS; 2018-01-22)
DX: A41.9 Sepsis, unspecified organism (principal); J18.9 Pneumonia, unspecified organism; J96.01 Acute respiratory failure with hypoxia; R04.2 Hemoptysis; B02.8 Zoster with other complications; J44.0 Chronic obstructive pulmonary disease with (acute) lower respiratory infection; D68.59 Other primary thrombophilia; I48.1 Persistent atrial fibrillation; I10 Essential (primary) hypertension; E87.70 Fluid overload, unspecified; E78.5 Hyperlipidemia, unspecified; Z82.49 Family history of ischemic heart disease and other diseases of the circulatory system; Z79.01 Long term (current) use of anticoagulants; Z88.1 Allergy status to other antibiotic agents; Z79.899 Other long term (current) drug therapy
CPT/HCPCS: 36415; 36600; 71045; 71046; 80048; 80053; 80074; 80202; 81001; 82140; 82803; 82805; 85025; 85027; 85610; 87040; 87086; 87205; 93005; 93010; 93306; 94640; 94660; 94760; 96365; 96366; 96368; 96375; A9270-GY; J0692; J0696; J1940; J1956; J2930; J3370; J3430; J7030; J7040